=== PATIENT | female | born 1960 | race Caucasian/White ===

== ENCOUNTER → 2019-11-08 09:15 | Outpatient (CLI) | payer OTHER, SELFPAY ==
--- NOTE | ~2019-11-08 | DEXA_ITS ---
Bone Density Report Name: Sintia Esteban Age: 59 Sex: Female Ethnicity: White Date of : 1960 Indication: postmenopausal; screening for osteoporosis; hysterectomy; Referring Provider: CYNTHIA HATHAWAY Study: Bone densitometry was performed. Exam Date: November 08, 2019 Accession number: [id number] Bone Density: Region BMD T-score Z-score Classification AP Spine (L1-L4) 1.146 0.9 2.3 Normal Femoral Neck (Left) 0.766 -0.8 0.5 Normal Total Hip (Left) 1.061 1.0 1.9 Normal Femoral Neck (Right) 0.808 -0.4 0.9 Normal Total Hip (Right) 0.999 0.5 1.4 Normal Total Hip Mean 1.030 0.8 1.7 Normal World Health Organization criteria for BMD impression classify patients as: Normal (T-score at or above -1.0), Osteopenia (T-score between -1.0 and -2.5), or Osteoporosis (T-score at or below -2.5). 10-year Fracture Risk: FRAX not reported because: All T-scores for Spine Total, Hip Total, Femoral Neck at or above -1.0 Previous Exams: Region Exam Age BMD T-score BMD Change BMD Change Date g/cm2 vs Baseline vs Previous AP Spine(L1-L4) 11/08/2019 59 1.146 0.9 -0.036* 0.052 05/28/2015 54 1.094 0.4 -0.088 -0.088 11/01/2010 50 1.182 1.2 Total Hip(Left) 11/08/2019 59 1.061 1.0 -0.005 0.023 05/28/2015 54 1.037 0.8 -0.028 -0.028 11/01/2010 50 1.065 1.0 Total Hip(Right) 11/08/2019 59 0.999 0.5 -0.052* -0.007 05/28/2015 54 1.006 0.5 -0.045 -0.045 11/01/2010 50 1.051 0.9 *Denotes significance at 95% confidence level, LSC for AP Spine = 0.022 g/cm2, LSC for Total Hip = 0.027 g/cm2 Clinical Information Provided by Patient: Has used the following medications: Vitamin D Has the following medical conditions: Hysterectomy Patient maximum height was 64.75 Menopause Age: 49 Drinks caffeinated beverages Onset of menses at age 13 Number of children 2 Impression: The patient has normal bone mass. No significant bone loss was observed. Discussion: BONE DENSITY IS ABOVE THE MINIMUM DESIRABLE LEVEL AT ALL SKELETAL SITES TESTED. This patient?s bone mineral density is above the minimum desirable level (T-score -1.0 or better) at all sites measured. The patient should follow a healthful lifestyle (good nutrition with adequate calcium and vitamin D, and appropriate weight-bearing exercise). Follow-Up: Consider repeating
== END ==
PROVIDERS: Visit Provider Obstetrics & Gynecology Gynecology
DX: Z78.0 Asymptomatic menopausal state (principal)
CPT/HCPCS: 77080

== ENCOUNTER 2020-06-11 14:28 | Outpatient (CLI) | payer BC, SELFPAY ==
--- NOTE | 2020-06-11 15:07 | ECHO_ITS ---
Patient Info Name: Sintia Esteban Age: 59 years : 1960 Gender: Female Ht: 63 in Wt: 230 lbs BSA: 2.21 m2 HR: 79 bpm BP: 160 / 76 mmHg Technical Quality: Good Exam Date: 06/11/2020 3:20 PM Exam Location: [facility] Patient Status: Outpatient Admit Date: 06/11/2020 Staff Ordering Physician: Jaz Parra Alligator Trapper: Belem Goodson RDCS Attending Provider: Jaz Parra Referring Physician: Aida LANDAVERDE; Exam Type: CA echo doppler color flow Study Info Indications - cardiac murmur Complete two-dimensional, color flow and Doppler transthoracic echocardiogram is performed. Summary 1. Complete two-dimensional, color flow and Doppler transthoracic echocardiogram is performed. 2. Left ventricular chamber dimension is normal. 3. Left ventricular systolic function is normal, estimated at 65-70%. 4. There is mildly increased left ventricular wall thickness. 5. The left ventricular diastolic function is grade I diastolic dysfunction. 6. E/e' 11 is mildly elevated. 7. Left atrial chamber dimension is moderately enlarged. 8. There is trace mitral valve regurgitation. 9. No pulmonary hypertension, estimated pulmonary arterial systolic pressure is 17 mmHg. Left Ventricle E/e' 11 is mildly elevated. Left ventricular chamber dimension is normal. Left ventricular systolic function is normal, estimated at 65-70%. There is mildly increased left ventricular wall thickness. The left ventricular diastolic function is grade I diastolic dysfunction. Right Ventricle Right ventricular chamber dimension is normal. Right ventricular systolic function is normal. Left Atria Left atrial chamber dimension is moderately enlarged. Right Atria Right atrial chamber dimension is normal. Aortic Valve The aortic valve is trileaflet. There is no aortic valve stenosis. There is no aortic valve regurgitation. Pulmonic Valve There is no pulmonic regurgitation. Mitral Valve There is no mitral valve stenosis. There is trace mitral valve regurgitation. Tricuspid Valve There is no tricuspid valve regurgitation. No pulmonary hypertension, estimated pulmonary arterial systolic pressure is 17 mmHg. Pericardium/Pleural There is no pericardial effusion. Inferior Vena Cava Normal inferior vena cava with >50% collapse upon inspiration consistent with normal right atrial pressure, 5 mmHg. Aorta The aortic root size at the sinus of Valsalva is normal. Left Ventricular Outflow Tract Name Value Normal LVOT 2D LVOT Diameter 2.0 cm LVOT Doppler LVOT Peak Gradient 5 mmHg LVOT Mean Gradient 4 mmHg LVOT VTI 25 cm LVOT VTI/AV VTI Ratio 0.7 LVOT Stroke Volume 77 ml LVOT CO 17.3 l/min LVOT CI 7.8 l/min/m2 Pulmonic Valve Name Value Normal
--- NOTE | 2020-06-11 15:07 | ECG_ITS ---
Measurements Intervals [place] Rate: 71 P: 74 MI: 181 QRS: 9 QRSD: 97 T: 111 QT: 396 QTc: 432 Interpretive Statements SINUS RHYTHM BORDERLINE ST-T WAVE ABNORMALITY- HIGH LATERAL LEADS BASELINE ARTIFACT- II, III, AVF BORDERLINE ECG Electronically Signed On 06-11-2020 16:28:27 INORGANIC CHEMISTRY PROFESSOR by Naveen Amin D.O.
== END 2020-06-11 14:29 | disposition home or self-care (01) ==
PROVIDERS: PCP Family Medicine; Visit Provider Nurse Practitioner Family
DX: Q23.1 Congenital insufficiency of aortic valve (principal); R01.1 Cardiac murmur, unspecified
CPT/HCPCS: 93005; 93306

== ENCOUNTER → 2021-08-06 00:24 | Outpatient (CLI) | payer BC, SELFPAY ==
[2021-08-06 13:06] LABS: SARS-CoV-2 RNA PCR Negative
== END ==
PROVIDERS: PCP Family Medicine; Visit Provider Nurse Practitioner Family
DX: R05.9 Cough, unspecified (principal); Z20.822 Contact with and (suspected) exposure to COVID-19
CPT/HCPCS: C9803; U0003; U0005

== ENCOUNTER → 2021-10-31 14:15 | Outpatient (CLI) | payer BC, SELFPAY ==
--- NOTE | ~2021-10-31 | MM_ITS ---
EXAMINATION: MM screening rosa BI w kia HISTORY: Screening mammogram TECHNIQUE: Craniocaudal and mediolateral oblique 3-D tomosynthesis images were obtained and synthetic 2-D images were generated. CAD analysis was submitted and interpreted. COMPARISON: 07/29/2018 diagnostic right mammogram and limited right breast ultrasound 07/27/2018 bilateral screening mammogram 06/06/2017, 06/04/2016 bilateral screening mammogram examinations BREAST PARENCHYMAL COMPOSITION: The breasts are heterogeneously dense, which may obscure small masses . FINDINGS: A history of prior benign lumpectomy of left breast in March 2012 and benign needle biop sy of right breast in December 2011. No biopsy was reportedly deemed necessary at [facility] after 07/29/2018 diagnostic right m ammogram and limited right breast ultrasound examinations. There is no evidence of suspicious mass, calcification, or architectural distortion to suggest malign nader in either breast. There has been no suspicious interval change. IMPRESSION: 1. No mammographic evidence of malignancy. 2. Recommend routine screening mammography in one year. BI-RADS Category 2: Benign finding(s). Reviewed, dictated and finalized at location B.
== END ==
PROVIDERS: PCP Family Medicine; Visit Provider Obstetrics & Gynecology Gynecology
DX: Z12.31 Encounter for screening mammogram for malignant neoplasm of breast (principal)
CPT/HCPCS: 77063; 77067

== ENCOUNTER 2022-12-12 00:54 | Day surgery (SDC) | payer BC, SELFPAY ==
[2022-11-27 09:27] VITALS: BMI 31.5
--- NOTE | 2022-12-11 14:19 | PM.HPGS ---
History of Present Illness History of Present Illness Consent: Risks, benefits, and alternatives have been discussed and questions answered. Patient agrees to proceed with procedure. Chief complaint: family hx colon ca Narrative: Sintia Esteban is a 62 year old female Referred for colon cancer screening. she has a family history of colon cancer . Her last colonoscopy was 9 years ago. Review of Systems Review of Systems: All systems reviewed & are unremarkable except as noted in HPI and below PMFSH Past Medical History Medical History Abnormal glucose level Controlled diabetes mellitus type II without complication Edema HLD (hyperlipidemia) HTN (hypertension) Obesity Osteoarthritis Skin tag Vitamin D deficiency Surgical History Surgical History History of bladder suspension procedure History of hysterectomy with bilateral oophorectomy History of lumpectomy of left breast benign Family History Family History Father Hypertension Family history of congestive heart failure, Onset Age: 52 Family history of obesity Patient's father is Family history of coronary artery disease, Onset Age: 52 Sibling Family history of coronary artery disease Family history of obesity Hypertension Family history of diabetes mellitus in first degree relative, Onset Age: 39 Family history of mental disorder Family history of eczema Patient's sister is in good health Patient's brother is in good health Family history of alcoholism Mother Family history of malignant neoplasm of urinary bladder, Onset Age: 70 Depression Patient's mother is in good health Family history of hearing loss Grandparent Family history of hearing loss Other Carcinoma of colon Family history of attention deficit hyperactivity disorder (ADHD) Family history of emphysema Family history of lung cancer Family history of pancreatic cancer Social History Social History Smoking status: Never smoker Second hand tobacco smoke exposure: Yes Alcohol intake: current Alcohol use details: 1 drink monthly Substance use: never Substance use type: does not use Lack of Transportation: No Lack of Food: Sometimes True Current Housing: I Have Housing Concerned About Future Housing: No Difficulty Paying Gas/Electric Bills: No Difficulty Paying for Meds: No Currently Unemployed: No Education: High School Diploma/GED Difficulty w/ Childcare or Family Care: No Living arrangements: with family Occupation/Education: occupation Gender identity (if verbalized by the patient): Female Spiritual care concerns: No Meds Home Medications and Allergies Home Medications Medication Instructions Recorded Confirmed Type meloxicam 15 mg tablet 15 mg PO DAILY #90 tabs 08/07/21 12/12/22 Rx fenofibrate nanocrystallized 145 145 mg PO DAILY #90 tabs 09/23/21 12/12/22 Rx mg tablet atorvastatin 80 mg tablet 80 mg PO DAILY #90 tabs 10/11/21 12/12/22 Rx cholecalciferol (vitamin D3) 1,250 1,250 mcg PO WEEKLY #12 caps 02/28/22 12/12/22 Rx mcg (50,000 unit) capsule metformin 500 mg tablet,extended 1,000 mg PO BID 10/29/22 12/12/22 History release 24 hr tirzepatide 10 mg/0.5 mL 10 mg subcut WEEKLY 10/29/22 12/12/22 History subcutaneous pen injector (Shell) amlodipine 10 mg tablet 10 mg PO DAILY 11/27/22 12/12/22 History evening primrose oil 500 mg capsule 500 mg PO DAILY 11/27/22 12/12/22 History lisinopril 20 1 tablet PO DAILY 11/27/22 12/12/22 History mg-hydrochlorothiazide 25 mg tablet Allergies Allergy/AdvReac Type Severity Reaction Status Date / Time No Known Allergies Allergy Verified 12/12/22 12:24 Exam Resp: Auscultation: clear to auscultation bilaterally Cardio:
[2022-12-12 12:28] VITALS: BP 146/67; PULSE 77; RESP 18; TEMP 36.4; O2SAT 100
[2022-12-12] MEDS: LACTATED RINGERS 1,000 ML 150 ML IV CONT (12:44)
[2022-12-12 12:52] LABS: Glucose Point of Care 98 mg/dl (65-105)
--- NOTE | 2022-12-12 13:23 | WPDANESEPPF ---
Anes - Initial Pre Proc Eval Procedure: Operation Date: 12/12/22 13:30 Proposed Procedures p Colonoscopy - Manolo Alfaro MD Date/Time: 12/12/22 13:23 Surgeon: Manolo Alfaro MD Pre Op Diagnosis: family hx colon ca Patient Data Age: 62 Gender: F Height: 1.63 m Weight: 81.1 kg Last Vital Signs Temp 97.6 F 12/12/22 12:28 Pulse 77 12/12/22 12:28 Resp 18 12/12/22 12:28 BP 146/67 H 12/12/22 12:28 Pulse Ox 100 12/12/22 12:28 O2 Del Method Room Air 12/12/22 12:28 Allergies Allergy/AdvReac Type Severity Reaction Status Date / Time No Known Allergies Allergy Verified 12/12/22 12:24 Home Medications Medication Instructions Recorded Confirmed Type meloxicam 15 mg tablet 15 mg PO DAILY #90 tabs 08/07/21 12/12/22 Rx fenofibrate nanocrystallized 145 145 mg PO DAILY #90 tabs 09/23/21 12/12/22 Rx mg tablet atorvastatin 80 mg tablet 80 mg PO DAILY #90 tabs 10/11/21 12/12/22 Rx cholecalciferol (vitamin D3) 1,250 1,250 mcg PO WEEKLY #12 caps 02/28/22 12/12/22 Rx mcg (50,000 unit) capsule metformin 500 mg tablet,extended 1,000 mg PO BID 10/29/22 12/12/22 History release 24 hr tirzepatide 10 mg/0.5 mL 10 mg subcut WEEKLY 10/29/22 12/12/22 History subcutaneous pen injector (Mounjaro) amlodipine 10 mg tablet 10 mg PO DAILY 11/27/22 12/12/22 History evening primrose oil 500 mg capsule 500 mg PO DAILY 11/27/22 12/12/22 History lisinopril 20 1 tablet PO DAILY 11/27/22 12/12/22 History mg-hydrochlorothiazide 25 mg tablet Laboratory Tests 12/12/22 12:48 POC Capillary Glucose 98 mg/dl (65-105) Patient hx anesthesia problems: none Family hx anesthesia problems: none Results Review: All pre-operative results and documents have been reviewed as part of the pre-operative evaluation. [facility] Past Medical History Medical History Abnormal glucose level Controlled diabetes mellitus type II without complication Edema HLD (hyperlipidemia) HTN (hypertension) Obesity Osteoarthritis Skin tag Vitamin D deficiency Surgical History Surgical History History of bladder suspension procedure History of hysterectomy with bilateral oophorectomy History of lumpectomy of left breast benign Family History Family History Father Hypertension Family history of congestive heart failure, Onset Age: 52 Family history of obesity Patient's father is Family history of coronary artery disease, Onset Age: 52 Sibling Family history of coronary artery disease Family history of obesity Hypertension Family history of diabetes mellitus in first degree relative, Onset Age: 39 Family history of mental disorder Family history of eczema Patient's sister is in good health Patient's brother is in good health Family history of alcoholism Mother Family history of malignant neoplasm of urinary bladder, Onset Age: 70 Depression Patient's mother is in good health Family history of hearing loss Grandparent Family history of hearing loss Other Carcinoma of colon Family history of attention deficit hyperactivity disorder (ADHD) Family history of emphysema Family history of lung cancer Family history of pancreatic cancer Social History Social History Smoking status: Never smoker Second hand tobacco smoke exposure: Yes Alcohol intake: current Alcohol use details: 1 drink monthly Substance use: never Substance use type: does not use Lack of Transportation: No Lack of Food: Sometimes True Current Housing: I Have Housing Concerned About Future Housing: No Difficulty Paying Gas/Electric Bills: No Difficulty Paying for Meds: No Currently Unemployed: No Education: High School Diploma/GED Difficulty w/ Childcare or F
[2022-12-12 13:54] VITALS: BP 117/76; PULSE 88; RESP 23; O2SAT 99
[2022-12-12 14:04] VITALS: BP 130/59; PULSE 84; RESP 24; O2SAT 100
[2022-12-12 14:14] VITALS: BP 136/60; PULSE 73; RESP 19; O2SAT 100
== END 2022-12-12 14:19 | disposition home or self-care (01) ==
PROVIDERS: PCP Family Medicine; Visit Provider Internal Medicine Gastroenterology
PROC: 0DJD8ZZ Inspection of Lower Intestinal Tract, Via Natural or Artificial Opening Endoscopic (ICD-10-PCS; CPT 45378; principal; 2022-12-12 13:30)
DX: Z12.11 Encounter for screening for malignant neoplasm of colon (principal); K64.8 Other hemorrhoids; K57.30 Diverticulosis of large intestine without perforation or abscess without bleeding; Z80.0 Family history of malignant neoplasm of digestive organs; I10 Essential (primary) hypertension; E78.5 Hyperlipidemia, unspecified; E55.9 Vitamin D deficiency, unspecified; E11.9 Type 2 diabetes mellitus without complications; E66.9 Obesity, unspecified; Z68.30 Body mass index [BMI] 30.0-30.9, adult; Z79.84 Long term (current) use of oral hypoglycemic drugs; Z79.899 Other long term (current) drug therapy
CPT/HCPCS: 45378; 82948; J2704; J7120

== ENCOUNTER 2023-05-28 16:56 | Outpatient (CLI) | payer BC, SELFPAY ==
--- NOTE | ~2023-05-28 | XR_ITS ---
EXAMINATION: XR knee LT min 4V DATE: 05/28/2023 17:22 INDICATION: Left knee primary osteoarthritis. TECHNIQUE: 4 views of left knee including standing views were obtained. COMPARISON: Left knee radiographs 06/11/2022 FINDINGS: Bone alignment is normal. No fracture. There is moderate osteoarthritis of medial and morgan lofemoral compartments and mild osteoarthritis of lateral compartment. No knee joint effusion. IMPRESSION: 1. Moderate left knee osteoarthritis. Reviewed, dictated and finalized at location E. CARVING LATHE OPERATOR
== END 2023-05-28 16:57 | disposition home or self-care (01) ==
LOC: ANHIMG 17:02
PROVIDERS: PCP Nurse Practitioner Family; Visit Provider Orthopaedic Surgery
DX: M17.12 Unilateral primary osteoarthritis, left knee (principal)
CPT/HCPCS: 73564

== ENCOUNTER 2023-06-06 08:05 | Outpatient (CLI) | payer BC, SELFPAY ==
--- NOTE | 2023-06-06 08:31 | ECG_ITS ---
Measurements Intervals [place] Rate: 75 P: 60 CO: 194 QRS: -9 QRSD: 92 T: 89 QT: 381 QTc: 426 Interpretive Statements SINUS RHYTHM VENTRICULAR PREMATURE COMPLEX CONSIDER INFERIOR INFARCT, AGE INDETERMINATE NONSPECIFIC ST-T WAVE ABNORMALITY- HIGH LATERAL LEADS BASELINE WANDER- I, II ABNORMAL ECG COMPARED TO ECG 06/11/2020 15:50:08 NO SIGNIFICANT CHANGES Electronically Signed On 06-06-2023 9:10:24 VEHICLE SALES PROFESSIONAL by Naveen Aimn D.O.
[2023-06-06 08:49] LABS: Hematocrit 39.9 % (37.0-47.0); Hemoglobin 13.1 g/dL (12.0-15.0)
[2023-06-06 09:00] LABS: Hemoglobin A1C 5.9 % (<5.7)
[2023-06-06 09:08] LABS: Albumin Level 4.3 g/dL (3.5-5.1); Estimated Glomerular Filt Rate > 60; Glucose 102 mg/dL (65-110)
== END 2023-06-06 08:06 | disposition home or self-care (01) ==
LOC: ANHLAB 08:06
PROVIDERS: PCP Nurse Practitioner Family; Visit Provider Orthopaedic Surgery
DX: Z01.818 Encounter for other preprocedural examination (principal); R01.1 Cardiac murmur, unspecified; E11.9 Type 2 diabetes mellitus without complications; E78.2 Mixed hyperlipidemia; I10 Essential (primary) hypertension; R94.31 Abnormal electrocardiogram [ECG] [EKG]
CPT/HCPCS: 36415; 82040; 82565; 82947; 83036; 85014; 85018; 93005

== ENCOUNTER 2023-08-05 11:43 | Outpatient (CLI) | payer BC, SELFPAY ==
[2023-08-05 13:04] LABS: Basophils Percent Auto 0.4 % (0.2-1.2); Eosinophils Absolute Auto 0.1 K/mm3 (0-0.3); Eosinophils Percent Auto 0.9 % (0-4.4); Hematocrit 38.7 % (37.0-47.0); Hemoglobin 12.5 g/dL (12.0-15.0); Immature Granulocyte Absolute 0.03 K/mm3 (0.00-0.031); Immature Granulocyte Percent A 0.4 % (0-0.5); Lymphocytes Absolute Auto 2.18 K/mm3 (0.9-3.2); Lymphocytes Percent Auto 27.1 % (18.3-44.2); Mean Corpuscular HGB Conc 32.3 g/dl (32-36); Mean Corpuscular Hemoglobin 29.8 pg (26-34); Mean Corpuscular Volume 92.1 fl (80-100); Mean Platelet Volume 9.6 fl (7.4-10.4); Monocytes Absolute Auto 0.5 K/mm3 (0.1-0.6); Monocytes Percent Auto 5.6 % (2.6-8.5); Neutrophils Absolute Auto 5.3 K/mm3 (1.3-6.7); Neutrophils Percent Auto 65.6 % (45.5-73.1); Platelet Count Result 391 k/mm3 (150-375); White Blood Count 8.1 K/mm3 (4.5-10.0)
[2023-08-05 13:11] LABS: Albumin Level 4.7 g/dL (3.5-5.1)
[2023-08-05 13:14] LABS: Anion Gap 9 mmol/L (4-12); Blood Urea Nitrogen 27 mg/dL (7-17); Calcium 10.1 mg/dL (8.4-10.2); Carbon Dioxide 25 mmol/L (22-30); Chloride 105 mmol/L (98-107); Estimated Glomerular Filt Rate > 60; Glucose 102 mg/dL (65-110); Potassium 3.7 mmol/L (3.4-5.0); Sodium 139 mmol/L (137-145)
[2023-08-05 13:17] LABS: Urine Cotinine NEGATIVE
[2023-08-05 14:29] LABS: MRSA (PCR) NOT DETECTED (NOT DETECTE)
== END 2023-08-05 11:44 | disposition home or self-care (01) ==
LOC: ANHSURGERY 11:46
PROVIDERS: Anesthesiology; PCP Nurse Practitioner Family; Visit Provider Orthopaedic Surgery
DX: Z01.818 Encounter for other preprocedural examination (principal); I10 Essential (primary) hypertension; M17.12 Unilateral primary osteoarthritis, left knee
CPT/HCPCS: 36415; 80048; 80307; 82040; 85025; 87641

== ENCOUNTER 2023-09-01 00:31 | Day surgery (SDC) | payer BC, SELFPAY ==
[2023-08-05 11:51] VITALS: BMI 31.2
--- NOTE | 2023-08-05 12:14 | PC.NURSE ---
Report to the Outpatient Waiting Room, entrance under the green pavilion located off [facility], at time _1030 on date __09/01/23 . Planned Procedure Time: __1230 . Time changes happen often and if your time is changed the preop area will call you the afternoon before. - You and your visitor will be asked to self-screen and do not enter if you have any COVID symptoms. - A mask is optional within the hospital at this time. Patients may have clear liquids (water, carbonated beverages, clear teas, apple juice) until 3 hours prior to surgery ( 9:30 AM)with a maximum of 20 ounces. - No food from midnight until time of surgery - Infants may have breast milk until 4 hours before surgery, formula 6 hours prior to surgery. - Children will be allowed to drink immediately following surgery. If applicable, please bring a bottle or sippy cup to assist with drinking. Juice, water, soda, and popsicles are readily available. For infants on formula, please bring formula the day of surgery. Pacifiers are allowed. Take the following medications with a SIP of water the morning of surgery: ___AMLODIPINE DO NOT STOP ANY OF YOUR OTHER PRESCRIPTION MEDICATIONS PRIOR TO SURGERY ?EXCEPT THE FOLLOWING Medications to discontinue per physician _PT STATES HOLD ALL VITAMINS AND SUPPLEMENTS AND MELOXICAM 7 DAYS PRE OP PER DR GARCIA.LAST DOSE 08/24/23 ___MAY TAKE TYLENOL IF NEEDED FOR PAIN Please no make-up, nail moroccan, hairspray, perfume, deodorant, or body powder the day of surgery. No jewelry (including any body piercings) or valuables the day of surgery, leave them at home. Please take a shower or bath the night before, or the morning of, surgery with an antibacterial soap. Wear comfortable, loose fitting clothing. Children are encouraged to wear pajamas. - Jewelry must be removed prior to entering the operating room. Rings and piercings that are not removed may be cut off. - The hospital will not accept responsibility for valuables. - Please leave all valuables, including medications, at home the day of surgery. If you are going home after surgery, a licensed driver guard must drive you home. - NO public transportation without another adult if you receive anesthesia. - We recommend that an adult stay with you for 24 hours following discharge. - We also recommend that you do not drive, make important decision, drink alcoholic beverages, or take any drugs that were not prescribed by your health care provider for at least 24 hours after your discharge time. Follow any additional instructions given to you from your surgeon. If you or anyone in your household have experienced Covid symptoms in the past week, please notify your surgeon or the nurse liaison at the phone number below for possible testing. VERBAL AND WRITTEN instructions given to _PATIENT and asked if any additional questions and then verbalized understanding. Patient advised to call surgeon office or pre surgery nurse liaison [phone] if any additional questions.
[2023-08-05 12:44] VITALS: BP 133/58; PULSE 70; RESP 18; TEMP 36.9; O2SAT 99
[2023-09-01] VITALS (12 sets, daily range): BP systolic 108–130; BP diastolic 50–62; PULSE 75–89; RESP 12–18; TEMP 35.9–36.8; O2SAT 95–100
--- NOTE | ~2023-09-01 | XR_ITS ---
EXAMINATION: [id number]_[id number]_CR DATE: 09/01/2023 12:38 CDT INDICATION: Left knee arthroplasty TECHNIQUE: 2 views left knee FINDINGS: There is a left total knee arthroplasty in expected position. Subcutaneous gas with fluid and air in the joint are consistent with recent surgery. No evidence of periprosthetic fracture. IMPRESSION: 1. Recent left total knee arthroplasty. Reviewed, dictated and finalized at location B.
--- NOTE | 2023-09-01 07:21 | WPDHPUPDATE1 ---
History and Physical Update Update Date/Time: 09/01/23 07:21 History and Physical has been reviewed, including an updated exam of the patient. There are NO changes in the patient's condition. Risks, benefits, and alternatives have been discussed and questions answered. Patient agrees to proceed with procedure.
[2023-09-01 08:31] LABS: Glucose Point of Care 104 mg/dl (65-105)
[2023-09-01] MEDS: ACETAMINOPHEN 500 MG TABLET 1000 MG PO (08:40)
[2023-09-01] MEDS: TRANEXAMIC ACID 1,000MG/ISO100 1,000 MG/100 ML BAG 200 MG IVPB (08:40)
--- NOTE | 2023-09-01 08:51 | WPDANESEPPF ---
Anes - Initial Pre Proc Eval Procedure: Operation Date: 09/01/23 10:00 Proposed Procedures p Left Custom Total Knee Arthroplasty - Alonso Chapman MD Date/Time: 09/01/23 08:51 Surgeon: Alonso Chapman MD Pre Op Diagnosis: primary oa left knee Patient Data Age: 62 Gender: F Height: 1.63 m Weight: 81.4 kg Last Vital Signs Temp 36.9 C 08/05/23 12:44 Pulse 70 08/05/23 12:44 Resp 18 08/05/23 12:44 BP 133/58 L 08/05/23 12:44 Pulse Ox 99 08/05/23 12:44 O2 Del Method Room Air 08/05/23 12:44 Allergies Allergy/AdvReac Type Severity Reaction Status Date / Time No Known Allergies Allergy Verified 09/01/23 09:03 Home Medications Medication Instructions Recorded Confirmed Type meloxicam 15 mg tablet 15 mg PO DAILY #90 tabs 08/07/21 08/05/23 Rx amlodipine 10 mg tablet 10 mg PO DAILY 11/27/22 09/01/23 History evening primrose oil 500 mg capsule 500 mg PO DAILY 11/27/22 08/05/23 History lisinopril 20 1 tablet PO DAILY 11/27/22 08/05/23 History mg-hydrochlorothiazide 25 mg tablet tirzepatide 10 mg/0.5 mL 12.5 mg subcut WEEKLY 04/08/23 08/05/23 History subcutaneous pen injector (Mounjaro) atorvastatin 80 mg tablet 80 mg PO HS 08/05/23 08/05/23 History cholecalciferol (vitamin D3) 125 125 mcg PO DAILY 08/05/23 08/05/23 History mcg (5,000 unit) capsule fenofibrate nanocrystallized 145 145 mg PO HS 08/05/23 08/05/23 History mg tablet magnesium 200 mg tablet 200 mg PO DAILY 08/05/23 08/05/23 History multivitamin 1 tablet PO DAILY 08/05/23 08/05/23 History aspirin 81 mg tablet,delayed 81 mg PO BID 14 days #28 tabs 09/01/23 Rx release oxycodone-acetaminophen 5 mg-325 1 - 2 tablet PO Q4-6H PRN pain #30 09/01/23 Rx mg tablet tabs prednisone 5 mg tablet 5 mg PO DAILY 3 weeks #21 tabs 09/01/23 Rx Laboratory Tests 09/01/23 09/01/23 08:25 08:29 POC Capillary Glucose 104 mg/dl (65-105) Blood Type Pending Antibody Screen Pending Patient hx anesthesia problems: none Family hx anesthesia problems: none Results Review: All pre-operative results and documents have been reviewed as part of the pre-operative evaluation. [facility] Past Medical History Medical History (Updated 09/01/23 @ 08:52 by Sree Rodriguez DO) Abnormal glucose level Controlled diabetes mellitus type II without complication Edema HLD (hyperlipidemia) HTN (hypertension) Obesity RUDDY (obstructive sleep apnea) Osteoarthritis Skin tag Vitamin D deficiency Surgical History Surgical History (Updated 09/01/23 @ 07:27 by AISLINN Ulrich) History of bladder suspension procedure History of hysterectomy with bilateral oophorectomy History of lumpectomy of left breast benign Family History Family History Father Hypertension Family history of congestive heart failure, Onset Age: 52 Family history of obesity Patient's father is Family history of coronary artery disease, Onset Age: 52 Sibling Family history of coronary artery disease Family history of obesity Hypertension Family history of diabetes mellitus in first degree relative, Onset Age: 39 Family history of mental disorder Family history of eczema Patient's sister is in good health Patient's brother is in good health Family history of alcoholism Mother Family history of malignant neoplasm of urinary bladder, Onset Age: 70 Depression Patient's mother is in good health Family history of hearing loss Grandparent Family history of hearing loss Other Carcinoma of colon Family history of attention deficit hyperactivity disorder (ADHD) Family history of emphysema Family history of lung cancer Family history of pancreatic cancer Social History Social History Smoking status: Never smoker Second hand tobacco smoke exposure: Yes Addition
[2023-09-01] MEDS: ceFAZolin 2 GM/D5W 50 ML 2 GM/50 ML BAG IVPB ×2 (09:44→17:40)
--- NOTE | 2023-09-01 09:45 | WPDANESPNB ---
Anes - Peripheral Nerve Block Date/Time: 09/01/23 09:45 I have discussed with the patient/family/POA the placement of a peripheral nerve block for post-operative pain management, including associated risks, benefits, complications, and side effects. Alternative methods of post-operative analgesia were detailed. Questions were solicited and answers provided to the satisfaction of the patient/family/POA. Time-Out: A pre-procedural Time-Out was completed immediately before starting the procedure and confirmed: Patient Identification, Site, Procedure, Patient Position and the Availability of Requisite Equipment. Clinical Indications: Acute post-operative pain management requested by the operative surgeon. Nerve Block Insertion Note Anes-nerve block: adductor canal left Patient position: supine Skin prep: chlorhexidine Needle: 22 gauge, stimulating, insulated echogenic needle. Needle length: 80 mm Technique: ultrasound Injectate: bupivacaine 0.5% with epi 5 mcg/ml (30cc - no epi) Observations: tolerated well Complications: none Procedure start time:: 933 Procedure end time:: 938
[2023-09-01] MEDS: LACTATED RINGERS 1,000 ML 30 ML IV CONT ×2 (10:00→12:19)
[2023-09-01] MEDS: SODIUM CHLORIDE 0.9% IV 37.7 ML, MORPHINE SULFATE INJ (*CRX) 2 MG, ROPivacaine HCL 1% 2... INFILTRATE (10:15)
[2023-09-01] MEDS: TRANEXAMIC ACID 1,000 MG/10 ML AMPUL 1000 MG IV PUSH (11:36)
[2023-09-01 12:26] LABS: Glucose Point of Care 104 mg/dl (65-105)
--- NOTE | 2023-09-01 13:09 | P.OP_ITS ---
Procedure Note - Detailed Date of Procedure 09/01/23 Pre-op Diagnosis primary oa left knee Post-op Diagnosis Same Procedure Performed Total knee arthroplasty, left Surgeon Alonso Chapman MD [employer]cier[employer] Maryann Roque PA-C Anesthesia General and Regional (Subsartorial block.) Findings Good bone quality. Custom knee components and jigs fit optimally. No significant ligament releases. Subvastus approach. Description of Procedure Preoperative antibiotics were given. The limb was prepped and draped in the usual sterile fashion with a well-padded tourniquet high on the thigh. The limb was exsanguinated and the tourniquet inflated to 300 mmHg. A longitudinal incision was created just medial to the patella. A subvastus approach to the knee was performed. Arthrotomy was taken down through the joint capsule. No significant releases were initially taken. The femur was exposed and the F1 jig was applied. The coring tool was used to remove the cartilage for the F2 jig to sit flush with the bone. The jig was pinned and the distal cut carefully taken. Caliper measurements confirmed appropriate bony resections according to the preoperative templated plan. The F4 cutting jig for the femur was applied, at the standard rotation. The AP and anterior chamfer cuts were taken. The F5 jig was applied and the posterior chamfer cuts were taken. The tibia was prepared using the T1 jig, after removing cartilage for the jig contact points. Proper alignment was checked with the alignment makayla. The tibia was cut using the T1u guide. Gap balancing was performed. Gap measurements were taken and the knee was trialed. Excellent alignment and soft tissue balancing was confirmed. The posterior cruciate ligament was recessed along the proximal tibia. The patella was cut for resurfacing. Three lug holes were drilled. Me niscal remnants were removed. The trial components were assembled. Excellent range of motion and proper soft tissue balancing were confirmed throughout the full range of motion. Patellar tracking was excellent. The knee was copiously irrigated periodically throughout the procedure. The real implants were cemented into position. Excess cement was carefully removed. The wound was closed in layers with interrupted #1 Vicryl suture, 2-0 strata fix suture, 0 strata fix suture, 2-0 strata fix suture. Steri-Strips placed on the skin with the knee flexed. Sterile bulky dressing applied. The patient was brought to the recovery room in stable condition. There were no complications. Physician dental assistant medical assistant, Maryann Roque PA-C, required for surgery; including patient positioning, draping, tissue retraction, maintaining instrument position, cement removal, wound closure, and dressing placement. Implants Conformis Custom total knee arthroplasty. Cemented. Cruciate retaining. 6A insert. 29 mm round patella. Estimated Blood Loss 20 Drains No Complications No immediate complications Condition Stable Disposition PACU [facility] Billing Surgery - Charge Forward: Surgery Billing
--- NOTE | 2023-09-01 13:23 | ADMGEN ---
This patient, Sintia Esteban, was admitted to -. Patient/family oriented to hospital policies and general routines including ID bracelet, bed and alarms, visiting hours, pain management, procedures, bathroom and other care routines, personal items, smoking policy, room service/diet, and visiting hours. Information on how to activate the Rapid Response Team has been discussed. Patient/Family are encouraged to report perceived risks to care and to ask questions if they do not understand what they are told or what they should do.
[2023-09-01] MEDS: oxyCODONE/ACETAMINOPHEN (*CRX) 10-325 MG TABLET 1 TAB PO (13:40)
[2023-09-01] MEDS: IBUPROFEN IV 800 MG/200 ML 800 MG/200 ML BAG 400 MG IVPB (13:41)
[2023-09-01] MEDS: lisinopriL 20 MG TABLET PO (13:54)
[2023-09-01] MEDS: hydroCHLOROthiazide 25 MG TABLET PO (13:54)
[2023-09-01] MEDS: ASPIRIN 81 MG ENTERIC TABLET PO (16:43)
[2023-09-01] MEDS: SENNA/DOCUSATE SODIUM TABLET 2 TAB PO (16:43)
[2023-09-01] MEDS: predniSONE 5 MG TABLET PO (16:43)
[2023-09-01] MEDS: ACETAMINOPHEN 325 MG TABLET 650 MG PO (17:40)
[2023-09-01] MEDS: FAMOTIDINE 20 MG TABLET PO (20:58)
[2023-09-01] MEDS: ATORVASTATIN 40 MG TABLET 80 MG PO (20:58)
[2023-09-01] MEDS: FENOFIBRATE NANOCRYSTALLIZED 145 MG TABLET PO (20:58)
[2023-09-01] MEDS: oxyCODONE/ACETAMINOPHEN (*CRX) 5-325 MG TABLET 1 TABLET PO (22:41)
[2023-09-01] MEDS: WATER FOR IRRIGATION, STERILE 1,000 ML BOTTLE 1000 ML (23:26)
[2023-09-02] MEDS: ceFAZolin 2 GM/D5W 50 ML 2 GM/50 ML BAG IVPB ×2 (01:39→09:44)
[2023-09-02 03:07] VITALS: BP 118/47; PULSE 84; RESP 16; TEMP 36.5; O2SAT 99
[2023-09-02 05:33] VITALS: BP 114/50; PULSE 86; RESP 18; TEMP 36.4; O2SAT 94
[2023-09-02] MEDS: ACETAMINOPHEN 325 MG TABLET 650 MG PO (05:53)
[2023-09-02 06:21] LABS: Basophils Percent Auto 0.2 % (0.2-1.2); Eosinophils Percent Auto 0.2 % (0-4.4); Hematocrit 35.1 % (37.0-47.0); Hemoglobin 11.4 g/dL (12.0-15.0); Immature Granulocyte Absolute 0.03 K/mm3 (0.00-0.031); Immature Granulocyte Percent A 0.3 % (0-0.5); Lymphocytes Absolute Auto 1.32 K/mm3 (0.9-3.2); Lymphocytes Percent Auto 14.3 % (18.3-44.2); Mean Corpuscular HGB Conc 32.5 g/dl (32-36); Mean Corpuscular Hemoglobin 29.4 pg (26-34); Mean Corpuscular Volume 90.5 fl (80-100); Mean Platelet Volume 9.5 fl (7.4-10.4); Monocytes Absolute Auto 0.7 K/mm3 (0.1-0.6); Monocytes Percent Auto 7.8 % (2.6-8.5); Neutrophils Absolute Auto 7.1 K/mm3 (1.3-6.7); Neutrophils Percent Auto 77.2 % (45.5-73.1); Platelet Count Result 324 k/mm3 (150-375); Red Blood Count 3.88 M/mm3 (4.2-5.4); White Blood Count 9.2 K/mm3 (4.5-10.0)
[2023-09-02 06:28] LABS: Anion Gap 5 mmol/L (4-12); Blood Urea Nitrogen 15 mg/dL (7-17); Calcium 9.2 mg/dL (8.4-10.2); Carbon Dioxide 25 mmol/L (22-30); Chloride 106 mmol/L (98-107); Estimated CRCL calculation 84 ml/min; Estimated Glomerular Filt Rate > 60; Glucose 116 mg/dL (65-110); Potassium 3.8 mmol/L (3.4-5.0); Sodium 136 mmol/L (137-145)
--- NOTE | 2023-09-02 07:35 | PM.DS ---
DS: Admitting Diagnosis Discharge Date 09/02/23 Admitting Diagnosis Knee arthritis. DS: Discharge Diagnosis Discharge Diagnosis (1) Status post total left knee replacement: Code(s): Z96.652 - Presence of left artificial knee joint Status: Acute Plan Postop day 1: Left total knee arthroplasty. Patient tolerated procedure well. No complications. Pain manageable with pain medication. No numbness or tingling. We had a lengthy discussion regarding postoperative wound care, limitations, expectations, and exercises. Patient shows good understanding. She has had initial physical therapy and is tolerating it well. DVT prophylaxis: 81 mg baby aspirin b.i.d. for 14 days. Pain medication: Percocet. Patient has followup appointment with Dr. Chapman in 3 weeks. DS: Summary Hospital Course Reason for hospitalization: Total knee arthroplasty Hospital Course: Patient tolerated procedure well. Has had initial PT/OT. Status at Discharge Functional status at discharge: uses cane/walker Overall status at discharge: patient is progressing back to baseline Time Spent with Patient Time attestation: Total time spent providing and/or coordinating discharge services: Exam Narrative: 62-year-old overweight female. Resting comfortably in chair. Alert and oriented x3. No acute distress. Wearing compression socks bilaterally. Dressing intact without drainage. Mild swelling. No ecchymosis. No erythema. No hematoma. Range of motion limited due to pain. Calf nontender. Quad fires. Neurologic status intact. No varicosities. Distal pulses palpable. DS: Data Data Completed and Pending Labs on day of discharge: Labs from last 24 hours 09/02/23 09/01/23 09/01/23 05:56 12:23 08:29 WBC 9.2 RBC 3.88 L Hgb 11.4 L Hct 35.1 L MCV 90.5 MCH 29.4 MCHC 32.5 RDW 13.0 Plt Count 324 MPV 9.5 Immature Gran % (Auto) 0.3 Neut % (Auto) 77.2 H Lymph % (Auto) 14.3 L Harvey % (Auto) 7.8 Eos % (Auto) 0.2 Baso % (Auto) 0.2 Lymph # (Auto) 1.32 Harvey # (Auto) 0.7 H Eos # (Auto) 0.0 Baso # (Auto) 0.0 Abs Immat Gran (auto) 0.03 Absolute Neuts (auto) 7.1 H Absolute Nucleated RBC 0.000 Nucleated RBC % 0.0 Sodium 136 L Potassium 3.8 Chloride 106 Carbon Dioxide 25 Anion Gap 5 BUN 15 D Creatinine 0.60 L Estim Creat Clear Calc 84 Estimated GFR > 60 Glucose 116 H POC Capillary Glucose 104 104 Calcium 9.2 Blood Type Antibody Screen 09/01/23 08:25 WBC RBC Hgb Hct MCV MCH MCHC RDW Plt Count MPV Immature Gran % (Auto) Neut % (Auto) Lymph % (Auto) Harvey % (Auto) Eos % (Auto) Baso % (Auto) Lymph # (Auto) Harvey # (Auto) Eos # (Auto) Baso # (Auto) Abs Immat Gran (auto) Absolute Neuts (auto) Absolute Nucleated RBC Nucleated RBC % Sodium Potassium Chloride Carbon Dioxide Anion Gap BUN Creatinine Estim Creat Clear Calc Estimated GFR Glucose POC Capillary Glucose Calcium Blood Type A Negative Antibody Screen Negative Discharge Plan Discharge Patient Disposition: Home, Self-Care Discharge Instructions: See green instruction sheets Stand Alone Forms: General Discharge Instructions Follow-up/Referrals: Maryann Roque PA [Physician Rn Embedded] - Discharge Medications: New prednisone 5 mg tablet 5 mg PO DAILY 21 Days Qty: 21 0RF aspirin 81 mg tablet,delayed release (DR/EC) 81 mg PO BID 14 Days Qty: 28 0RF oxycodone-acetaminophen 5-325 mg tablet 1 - 2 tablet PO Q4-6H MDD 6 PRN (Reason: pain) Qty: 30 0RF Continued cholecalciferol (vitamin D3) 125 mcg (5,000 unit) capsule 125 mcg PO DAILY Mounjaro 10 mg/0.5 mL pen injector 12.5 mg subcut WEEKLY Patient Comments: TAKES ON MONDAYS evening primrose oil 500 mg Capsule 500 mg PO DAILY Rx Instructions: give with meal/snack
[2023-09-02] MEDS: hydroCHLOROthiazide 25 MG TABLET PO (07:57)
[2023-09-02] MEDS: SENNA/DOCUSATE SODIUM TABLET 2 TAB PO (07:57)
[2023-09-02] MEDS: polyethylene glycoL 3350 17 GM POWD.PACK PO (07:57)
[2023-09-02] MEDS: ASPIRIN 81 MG ENTERIC TABLET PO (07:57)
[2023-09-02] MEDS: lisinopriL 20 MG TABLET PO (07:57)
[2023-09-02] MEDS: FAMOTIDINE 20 MG TABLET PO (07:58)
[2023-09-02] MEDS: CYCLOBENZAPRINE HCL 10 MG TABLET PO (07:58)
[2023-09-02] MEDS: oxyCODONE/ACETAMINOPHEN (*CRX) 10-325 MG TABLET 1 TAB PO (07:58)
[2023-09-02] MEDS: amLODIPine BESYLATE 5 MG TABLET 10 MG PO (07:58)
[2023-09-02] MEDS: MELOXICAM 7.5 MG TABLET 15 MG PO (07:58)
[2023-09-02 08:00] VITALS: BP 116/67; PULSE 73; RESP 14; TEMP 37; O2SAT 98
== END 2023-09-02 11:00 | disposition home or self-care (01) ==
LOC: ANHSURGERY 07:46 → ANH3MEDSUR 13:24
PROVIDERS: Physician Assistant Surgical; PCP Nurse Practitioner Family; Visit Provider Orthopaedic Surgery
PROC: (CPT 27447; principal; 2023-09-01 10:00)
DX: M17.12 Unilateral primary osteoarthritis, left knee (principal); G89.18 Other acute postprocedural pain; I10 Essential (primary) hypertension; E11.9 Type 2 diabetes mellitus without complications; E78.5 Hyperlipidemia, unspecified; G47.33 Obstructive sleep apnea (adult) (pediatric); E55.9 Vitamin D deficiency, unspecified; E66.9 Obesity, unspecified; Z68.30 Body mass index [BMI] 30.0-30.9, adult
CPT/HCPCS: 27447; 64447; 36415; 73560; 80048; 82948; 85025; 86850; 86900; 86901; 97110; 97116; 97161; 97165; 97530; 97535; A9270; C1713; C1776; J0171; J0330; J0690; J1170; J1741; J1885; J2250; J2270; J2405; J2704; J2765; J2795; J3010; J7120; J7512

== ENCOUNTER 2023-10-21 08:20 | Outpatient (CLI) | payer BC, SELFPAY ==
--- NOTE | ~2023-10-21 | XR_ITS ---
Left Knee Technique: AP, lateral, and sunrise views were obtained. Clinical History: Arthroplasty follow-up COMPARISON: 05/28/2023 Findings: No fracture or dislocation is seen. Status post interval left knee arthroplasty. No hardwar e complication seen.. Soft tissues are unremarkable. No joint effusion is seen. Impression: No acute abnormality. Left knee arthroplasty in place. Reviewed, dictated and finalized at location M. Impression: No acute abnormality. Left knee arthroplasty in place.
== END 2023-10-21 08:21 | disposition home or self-care (01) ==
LOC: ANHIMG 08:22
PROVIDERS: PCP Nurse Practitioner Family; Visit Provider Orthopaedic Surgery
DX: Z47.1 Aftercare following joint replacement surgery (principal)
CPT/HCPCS: 73562

== ENCOUNTER 2023-10-30 07:37 | Outpatient (CLI) | payer BC, SELFPAY ==
[2023-10-30 08:18] LABS: Albumin Level 4.7 g/dL (3.5-5.1); Estimated Glomerular Filt Rate > 60; Glucose 102 mg/dL (65-110)
[2023-10-30 08:21] LABS: Hematocrit 41.2 % (37.0-47.0); Hemoglobin 13.4 g/dL (12.0-15.0)
[2023-10-30 09:12] LABS: Hemoglobin A1C 5.5 % (<5.7)
== END 2023-10-30 07:38 | disposition home or self-care (01) ==
LOC: ANHLAB 07:38
PROVIDERS: PCP Nurse Practitioner Family; Visit Provider Orthopaedic Surgery
DX: M17.11 Unilateral primary osteoarthritis, right knee (principal); E55.9 Vitamin D deficiency, unspecified; E11.9 Type 2 diabetes mellitus without complications
CPT/HCPCS: 36415; 82040; 82565; 82947; 83036; 85014; 85018

== ENCOUNTER 2023-12-21 12:14 | Outpatient (CLI) | payer BC, SELFPAY ==
[2023-12-21 14:09] LABS: Basophils Percent Auto 0.2 % (0.2-1.2); Eosinophils Absolute Auto 0.1 K/mm3 (0-0.3); Eosinophils Percent Auto 1.4 % (0-4.4); Hematocrit 37.4 % (37.0-47.0); Hemoglobin 12.5 g/dL (12.0-15.0); Immature Granulocyte Absolute 0.01 K/mm3 (0.00-0.031); Immature Granulocyte Percent A 0.2 % (0-0.5); Lymphocytes Absolute Auto 0.97 K/mm3 (0.9-3.2); Mean Corpuscular HGB Conc 33.4 g/dl (32-36); Mean Corpuscular Hemoglobin 30.2 pg (26-34); Mean Corpuscular Volume 90.3 fl (80-100); Mean Platelet Volume 9.7 fl (7.4-10.4); Monocytes Absolute Auto 0.4 K/mm3 (0.1-0.6); Monocytes Percent Auto 7.8 % (2.6-8.5); Neutrophils Absolute Auto 3.4 K/mm3 (1.3-6.7); Neutrophils Percent Auto 70.4 % (45.5-73.1); Platelet Count Result 318 k/mm3 (150-375); Red Blood Count 4.14 M/mm3 (4.2-5.4); White Blood Count 4.9 K/mm3 (4.5-10.0)
[2023-12-21 14:18] LABS: Urine Cotinine NEGATIVE
[2023-12-21 14:19] LABS: Albumin Level 4.4 g/dL (3.5-5.1)
[2023-12-21 14:23] LABS: Anion Gap 10 mmol/L (4-12); Blood Urea Nitrogen 22 mg/dL (7-17); Calcium 9.6 mg/dL (8.4-10.2); Carbon Dioxide 28 mmol/L (22-30); Chloride 102 mmol/L (98-107); Estimated Glomerular Filt Rate > 60; Glucose 96 mg/dL (65-110); Sodium 140 mmol/L (137-145)
[2023-12-21 15:29] LABS: MRSA (PCR) NOT DETECTED (NOT DETECTE)
== END 2023-12-21 12:15 | disposition home or self-care (01) ==
PROVIDERS: Anesthesiology; PCP Nurse Practitioner Family; Visit Provider Orthopaedic Surgery
DX: Z01.812 Encounter for preprocedural laboratory examination (principal); M17.11 Unilateral primary osteoarthritis, right knee; E11.9 Type 2 diabetes mellitus without complications
CPT/HCPCS: 36415; 80048; 80307; 82040; 85025; 87641

== ENCOUNTER 2023-12-30 10:52 | Outpatient (CLI) | payer BC, SELFPAY ==
--- NOTE | ~2023-12-30 | MM_ITS ---
EXAMINATION: MM screening rosa BI w kia HISTORY: Screening TECHNIQUE: Craniocaudal and mediolateral oblique 3-D tomosynthesis images were obtained and synthetic 2-D images were generated. CAD analysis was submitted and interpreted. COMPARISON: Comparison to multiple prior studies sequentially, with oldest reviewed study dated 05/28. BREAST PARENCHYMAL COMPOSITION: Dense: The breasts are heterogeneously dense, which may obscure small masses FINDINGS: There is no evidence of suspicious mass, calcification, or architectural distortion to sugg est malignancy in either breast. There has been no suspicious interval change. IMPRESSION: 1. No mammographic evidence of malignancy. 2. Recommend routine screening mammography in one year. BI-RADS Category 1: Negative Reviewed, dictated and finalized at location B.
== END 2023-12-30 10:53 | disposition home or self-care (01) ==
LOC: MICIMG 10:53
PROVIDERS: PCP Nurse Practitioner; Visit Provider Nurse Practitioner
DX: Z12.31 Encounter for screening mammogram for malignant neoplasm of breast (principal); Z78.0 Asymptomatic menopausal state
CPT/HCPCS: 77063; 77067

== ENCOUNTER 2024-01-12 00:10 | Day surgery (SDC) | payer BC, SELFPAY ==
[2023-12-21 08:08] VITALS: BP 115/54; PULSE 62; RESP 16; TEMP 37; O2SAT 98; BMI 30.2
--- NOTE | 2023-12-21 12:20 | PC.NURSE ---
Report to the Outpatient Waiting Room, entrance under the green pavilion located off [facility], at time _8:30AM_ on date _01/12/24_. Planned Procedure Time: _10:30AM_.? Time changes happen often and if your time is changed the preop area will call you the afternoon before. - You and your visitor will be asked to self-screen and do not enter if you have any COVID symptoms. Please call surgeon if you need to reschedule. - A mask is optional within the hospital at this time. Patients may have clear liquids (water, carbonated beverages, clear teas, apple juice) until 3 hours prior to surgery with a maximum of 20 ounces. - No food from midnight until time of surgery and no smoking. Take only the following medications with a SIP of water on the morning of surgery: NONE DO NOT STOP ANY OF YOUR OTHER PRESCRIPTION MEDICATIONS PRIOR TO SURGERY EXCEPT THE FOLLOWING Medications to discontinue per physician HOLD MELOXICAM (NSAIDS) & ALL VITAMINS/SUPPLEMENTS 7 DAYS PRE-OP PER DR GARCIA- LAST DOSE 01/04/24. Please no make-up, nail ukrainian, hairspray, perfume, deodorant, or body powder the day of surgery.? No jewelry (including any body piercings) or valuables the day of surgery, leave them at home.? Please take a shower or bath the night before, or the morning of, surgery with an antibacterial soap.? Wear comfortable, loose fitting clothing.? - Jewelry must be removed prior to entering the operating room.? Rings and piercings that are not removed may be cut off. - The hospital will not accept responsibility for valuables.? - Please leave all valuables, including medications, at home the day of surgery. If you are going home after surgery, a licensed commercial front load driver must drive you home.? - NO public transportation without another adult if you receive anesthesia. - We recommend that an adult stay with you for 24 hours following discharge. - We also recommend that you do not drive, make important decision, drink alcoholic beverages, or take any drugs that were not prescribed by your health care provider for at least 24 hours after your discharge time. Follow any additional instructions given to you from your surgeon. Telephone instructions given to ____PATIENT & DAUGHTER and asked if any additional questions and then verbalized understanding. Patient advised to call surgeon office or pre surgery nurse liaison [phone] if any additional questions.
[2024-01-12] VITALS (8 sets, daily range): BP systolic 122–136; BP diastolic 50–69; PULSE 60–87; RESP 12–16; TEMP 36.3–36.6; O2SAT 94–100
--- NOTE | ~2024-01-12 | XR_ITS ---
EXAMINATION: [id number]_[id number]_CR DATE: 01/12/2024 14:26 INDICATION: Right total knee arthroplasty. Postop. TECHNIQUE: 2 views of right knee were obtained. COMPARISON: Right knee radiographs 06/11/2022 FINDINGS: There is total right knee arthroplasty with patellar resurfacing in near-anatomic alignment . No fracture. There is gas in the joint and soft tissues, consistent with recent surgery. IMPRESSION: 1. Total right knee arthroplasty in near-anatomic alignment. Reviewed, dictated and finalized at location A.
[2024-01-12 09:26] LABS: Glucose Point of Care 91 mg/dl (65-105)
[2024-01-12] MEDS: TRANEXAMIC ACID 1,000MG/ISO100 1,000 MG/100 ML BAG 200 MG IVPB ×2 (09:34→12:52)
[2024-01-12] MEDS: ACETAMINOPHEN 500 MG TABLET 1000 MG PO (09:34)
--- NOTE | 2024-01-12 09:44 | WPDANESEPPF ---
Anes - Initial Pre Proc Eval Procedure: Operation Date: 01/12/24 10:30 Proposed Procedures p Right Custom Total Knee Arthroplasty - Alonso Chapman MD Date/Time: 01/12/24 09:44 Surgeon: Alonso Chapman MD Pre Op Diagnosis: Prim O A Rt Knee Patient Data Age: 63 Gender: F Height: 1.64 m Weight: 83.4 kg Last Vital Signs Temp 36.3 C L 01/12/24 09:38 Pulse 60 01/12/24 09:38 Resp 16 01/12/24 09:38 BP 133/52 L 01/12/24 09:38 Pulse Ox 100 01/12/24 09:38 O2 Del Method Room Air 01/12/24 09:38 Allergies Allergy/AdvReac Type Severity Reaction Status Date / Time No Known Allergies Allergy Verified 01/12/24 09:32 Home Medications Medication Instructions Recorded Confirmed Type meloxicam 15 mg tablet 15 mg PO DAILY #90 tabs 08/07/21 01/12/24 Rx evening primrose oil 500 mg capsule 2,000 mg PO DAILY 11/27/22 01/12/24 History lisinopril 20 1 tablet PO QAM 11/27/22 12/21/23 History mg-hydrochlorothiazide 25 mg tablet tirzepatide 10 mg/0.5 mL 12.5 mg subcut WEEKLY 04/08/23 12/21/23 History subcutaneous pen injector (Mounjaro) atorvastatin 80 mg tablet 80 mg PO HS 08/05/23 12/21/23 History cholecalciferol (vitamin D3) 125 125 mcg PO DAILY 08/05/23 12/21/23 History mcg (5,000 unit) capsule fenofibrate nanocrystallized 145 145 mg PO HS 08/05/23 12/21/23 History mg tablet multivitamin 1 tablet PO DAILY 08/05/23 12/21/23 History amoxicillin 500 mg tablet 500 mg PO ONCE #4 tabs 12/21/23 12/21/23 Rx docusate sodium 50 mg capsule 50 mg PO DAILY 12/21/23 12/21/23 History magnesium 250 mg tablet 250 mg PO DAILY 12/21/23 12/21/23 History Laboratory Tests 01/12/24 09:21 POC Capillary Glucose 91 mg/dl (65-105) Patient hx anesthesia problems: none Family hx anesthesia problems: none Results Review: All pre-operative results and documents have been reviewed as part of the pre-operative evaluation. [facility] Past Medical History Medical History Abnormal glucose level Controlled diabetes mellitus type II without complication Edema HLD (hyperlipidemia) HTN (hypertension) Obesity RUDDY (obstructive sleep apnea) Osteoarthritis Skin tag Vitamin D deficiency Surgical History Surgical History History of bladder suspension procedure History of hysterectomy with bilateral oophorectomy History of lumpectomy of left breast benign History of total left knee replacement (TKR) Family History Family History Father Hypertension Family history of congestive heart failure, Onset Age: 52 Family history of obesity Patient's father is Family history of coronary artery disease, Onset Age: 52 Sibling Family history of coronary artery disease Family history of obesity Hypertension Family history of diabetes mellitus in first degree relative, Onset Age: 39 Family history of mental disorder Family history of eczema Patient's sister is in good health Patient's brother is in good health Family history of alcoholism Mother Family history of malignant neoplasm of urinary bladder, Onset Age: 70 Depression Patient's mother is in good health Family history of hearing loss Grandparent Family history of hearing loss Other Carcinoma of colon Family history of attention deficit hyperactivity disorder (ADHD) Family history of emphysema Family history of lung cancer Family history of pancreatic cancer Social History Social History Smoking status: Never smoker Second hand tobacco smoke exposure: Yes Additional smoking assessment comments: DENIES ANY FORM OF TOBACCO USE Alcohol intake: current Alcohol use details: 1 drink monthly Substance use: never Substance use type: does not use Do You Feel Safe in your Home?: Yes Lack
--- NOTE | 2024-01-12 10:09 | WPDHPUPDATE1 ---
History and Physical Update Update Date/Time: 01/12/24 10:09 History and Physical has been reviewed, including an updated exam of the patient. There are NO changes in the patient's condition. Risks, benefits, and alternatives have been discussed and questions answered. Patient agrees to proceed with procedure.
[2024-01-12] MEDS: ceFAZolin 2 GM/D5W 50 ML 2 GM/50 ML BAG IVPB (11:08)
--- NOTE | 2024-01-12 11:15 | WPDANESPNB ---
Anes - Peripheral Nerve Block Date/Time: 01/12/24 11:15 I have discussed with the patient/family/POA the placement of a peripheral nerve block for post-operative pain management, including associated risks, benefits, complications, and side effects. Alternative methods of post-operative analgesia were detailed. Questions were solicited and answers provided to the satisfaction of the patient/family/POA. Time-Out: A pre-procedural Time-Out was completed immediately before starting the procedure and confirmed: Patient Identification, Site, Procedure, Patient Position and the Availability of Requisite Equipment. Clinical Indications: Acute post-operative pain management requested by the operative surgeon. Nerve Block Insertion Note Anes-nerve block: adductor canal right Patient position: supine Skin prep: chlorhexidine Needle: 22 gauge, stimulating, insulated echogenic needle. Needle length: 80 mm Technique: ultrasound Injectate: bupivacaine 0.5% with epi 5 mcg/ml (30cc - no epi) Observations: tolerated well Complications: none Procedure start time:: 1053 Procedure end time:: 105
[2024-01-12] MEDS: SODIUM CHLORIDE 0.9% IV 37.7 ML, MORPHINE SULFATE INJ (*CRX) 2 MG, ROPivacaine HCL 1% 2... INFILTRATE (11:37)
[2024-01-12] MEDS: LACTATED RINGERS 1,000 ML 30 ML IV CONT ×2 (13:21→13:56)
[2024-01-12 13:28] LABS: Glucose Point of Care 115 mg/dl (65-105)
--- NOTE | 2024-01-12 13:49 | W.PM.PROC2 ---
Procedure Note - Detailed Date of Procedure 01/12/24 Pre-op Diagnosis DJD right knee. Post-op Diagnosis Same Procedure Performed Total knee arthroplasty, right. Surgeon Alonso Chapman MD [employer] Maryann Roque PA-C Anesthesia General and Regional (Subsartorial block.) Findings Custom TKA with optimal fit. Partial PCL release. Good bone quality. Description of Procedure Preoperative antibiotics were given. The limb was prepped and draped in the usual sterile fashion with a well-padded tourniquet high on the thigh. The limb was exsanguinated and the tourniquet inflated to 300 mmHg. A longitudinal incision was created just medial to the patella. A trivector approach to the knee was performed. Arthrotomy was taken down through the joint capsule. No significant releases were initially taken. The femur was exposed and the F1 jig was applied. The coring tool was used to remove the cartilage for the F2 jig to sit flush with the bone. The jig was pinned and the distal cut carefully taken. Caliper measurements confirmed appropriate bony resections according to the preoperative templated plan. The F4 cutting jig for the femur was applied, at the standard rotation. The AP and anterior chamfer cuts were taken. The F5 jig was applied and the posterior chamfer cuts were taken. The tibia was prepared using the T1 jig, after removing cartilage for the jig contact points. Proper alignment was checked with the alignment makayla. The tibia was cut using the T1u guide. Gap balancing was performed. Gap measurements were taken and the knee was trialed. Excellent alignment and soft tissue balancing was confirmed. The posterior cruciate ligament was recessed along the proximal tibia. The patella was cut for resurfacing. Three lug holes were drilled. Meniscal remnants were removed. The trial components were assembled. Excellent range of motion and proper soft tissue balancing were confirmed throughout the full range of motion. Patellar tracking was excellent. The knee was copiously irrigated periodically throughout the procedure. The real implants were cemented into position. Excess cement was carefully removed. The wound was closed in layers with interrupted #1 Vicryl suture, 2-0 strata fix suture, 0 strata fix suture, 2-0 strata fix suture. Steri-Strips placed on the skin with the knee flexed. Sterile bulky dressing applied. The patient was brought to the recovery room in stable condition. There were no complications. Physician environmental engineering assistant, Maryann Roque PA-C, required for surgery; including patient positioning, draping, tissue retraction, maintaining instrument position, cement removal, wound closure, and dressing placement. Implants Conformis Custom total knee arthroplasty. Cemented. Cruciate retaining. 6A insert. 32 mm round patella. Estimated Blood Loss 300 Drains No Complications No immediate complications Condition Stable Disposition PACU [facility] Billing Surgery - Charge Forward: Surgery Billing
--- NOTE | 2024-01-12 14:20 | SUR.PHASEII ---
PT AND OT NOTIFIED THAT PATIENT IS HERE FOR THERAPY. LUNCH ORDERED. PORTABLE XRAY DONE OF RIGHT KNEE.
--- NOTE | 2024-01-12 14:45 | SUR.PHASEII ---
PHYSICAL THERAPIST IN TO WORK WITH PATIENT.
--- NOTE | 2024-01-12 15:06 | SUR.PHASEII ---
EATING LUNCH, WAITING FOR OT.
--- NOTE | 2024-01-12 15:18 | SUR.PHASEII ---
OT HERE TO WORK WITH PATIENT.
--- NOTE | 2024-01-12 16:00 | SUR.PHASEII ---
DR. GARCIA CAME BACK TO SEE PATIENT. OKAY'D FOR HER TO GO HOME.
== END 2024-01-12 16:00 | disposition home or self-care (01) ==
PROVIDERS: PCP Nurse Practitioner; Visit Provider Orthopaedic Surgery
PROC: (CPT 27447; principal; 2024-01-12 10:30)
DX: M17.11 Unilateral primary osteoarthritis, right knee (principal); E11.9 Type 2 diabetes mellitus without complications; I10 Essential (primary) hypertension; E78.5 Hyperlipidemia, unspecified; G89.18 Other acute postprocedural pain; G47.33 Obstructive sleep apnea (adult) (pediatric); E55.9 Vitamin D deficiency, unspecified; E66.9 Obesity, unspecified; Z68.31 Body mass index [BMI] 31.0-31.9, adult; Z79.85 Long-term (current) use of injectable non-insulin antidiabetic drugs; Z98.890 Other specified postprocedural states; Z80.52 Family history of malignant neoplasm of bladder; Z80.1 Family history of malignant neoplasm of trachea, bronchus and lung; Z80.0 Family history of malignant neoplasm of digestive organs; Z82.49 Family history of ischemic heart disease and other diseases of the circulatory system
CPT/HCPCS: 64447; 27447; 36415; 73560; 82948; 86850; 86900; 86901; 97110; 97161; 97165; A9270; C1713; C1776; J0171; J0690; J1100; J1171; J1885; J2003; J2250; J2270; J2405; J2704; J2795; J3010; J7120

== ENCOUNTER 2024-03-02 08:12 | Outpatient (CLI) | payer BC, SELFPAY ==
--- NOTE | ~2024-03-02 | XR_ITS ---
XR knee RT 3V Ordering provider: Alonso Chapman MD History: . Z96.651 - Presence of right artificial knee joint . Comparison: None. FINDINGS: BONES: No acute fracture or dislocation. JOINT SPACES: Total knee arthroplasty. SOFT TISSUES: Normal. IMPRESSION: No acute osseous abnormality right knee. Total knee arthroplasty. Reviewed, dictated and finalized at location A. ITOMETER READER
== END 2024-03-02 08:13 | disposition home or self-care (01) ==
PROVIDERS: PCP Nurse Practitioner Family; Visit Provider Orthopaedic Surgery
DX: Z96.651 Presence of right artificial knee joint (principal)
CPT/HCPCS: 73562

== ENCOUNTER 2024-11-10 11:49 | Outpatient (CLI) | payer MEDICARE, SELFPAY ==
--- NOTE | ~2024-11-10 | DEXA_ITS ---
Bone Density Report Name: AISHA CASTELLON Age: 64 Sex: Female Ethnicity: White Date of : 1960 Indication: postmenopausal; screening for osteoporosis; height loss; hysterectomy; Referring Provider: HUY, PO Study: Bone densitometry was performed. Exam Date: November 10, 2024 Accession number: [id number] Bone Density: Region BMD T-score Z-score Classification AP Spine(L1-L4) 1.130 0.8 2.5 Normal Femoral Neck (Left) 0.686 -1.5 0.0 Osteopenia Total Hip (Left) 0.877 -0.5 0.7 Normal Femoral Neck (Right) 0.646 -1.8 -0.3 Osteopenia Total Hip (Right) 0.827 -0.9 0.3 Normal Total Hip Mean 0.852 -0.7 0.5 Normal World Health Organization criteria for BMD impression classify patients as: Normal (T-score at or above -1.0), Osteopenia (T-score between -1.0 and -2.5), or Osteoporosis (T-score at or below -2.5). 10-year Fracture Risk(1): Major Osteoporotic Fracture 9.4% Hip Fracture 1.2% Reported Risk Factors: [place] (), Neck BMD=0.646, BMI=33.4 (1) FRAX(R) Version 3.08. Fracture probability calculated for an untreated patient. Fracture probability may be lower if the patient has received treatment. Clinical Information Provided by Patient: Has used the following medications: Vitamin D Has the following medical conditions: Hysterectomy Patient maximum height was 64 Menopause Age: 49 No regular weight bearing exercise Drinks caffeinated beverages Onset of menses at age 13 Number of children 2 Impression: The patient has low bone mass, based on the Right Femoral Neck T-score. The patient has an estimated ten-year risk of hip fracture of 1.2% and an estimated ten-year risk of major fracture of 9.4%, based on the WHO FRAX algorithm. Discussion: BONE DENSITY IS LOW AT ONE OR MORE SKELETAL SITES. This patient's lowest T-score is low at one or more skeletal sites. It meets the World Health Organization's (WHO) criteria for ?low bone mass? (T-score between -1.0 and -2.5). The patient's 10-year risk of fracture as calculated by FRAX is less than the threshold where pharmacological therapy is recommended by the National Osteoporosis Foundation (NOF). However, all treatment decisions require clinical judgment and consideration of individual patient factors, including patient preferences, comorbidities, previous drug use, risk factors not captured in the FRAX model (e.g., frailty, falls, vitamin D deficiency, increased bone turnover, interval significant decline in bone density) and possible under or overestimation of fracture risk by FRAX. The patient should follow a healthful lifestyle (good nutrition with adequate calcium and vitamin D, and appropriate weight-bearing exercise). Follow-Up: Consider repeating this study in 2 to 3 years to reassess this patient's status, or sooner if there is some new clinical indication. Reported by: SHARON on 11/10/2024 1:09:00 PM. Reviewed, dictated and finalized at location A.
--- OUTSIDE RECORDS SUMMARY | 2024-11-10 11:55 | XMS_ITS | Encounter Summary ---
Author Organization [facility] Address [address] [place] [address] Care Team Providers Care Campus Ambassador Name Role Phone Berhane Easley MD Primary Care Provider [phone] Encounter Details Date Type Department Care Team (Latest Contact Info) Description 01/01/2005 Outpatient Historical HIS [facility] Berhane Do MD [address] [facility] [address] [place] [address] SCREENING MAMM-MAILG NEOPL NEC (Primary Dx) Social History Tobacco Use Types Packs/Day Years Used Date Smoking Tobacco: Never Assessed Comments Unknown Sex and Gender Information Value Date Recorded Sex Assigned at Not on file Legal Sex Female 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
--- OUTSIDE RECORDS SUMMARY | 2024-11-10 11:55 | XMS_ITS | Clinical Summary ---
Author Organization [facility] Address [address] [facility] [place] [address] Care Team Providers Care Director Of Loss Prevention Name Role Phone Berhane Easley MD Primary Care Provider [phone] Medications tirzepatide (Mounjaro) 7.5 mg/0.5 mL Pen Injector Inject 0.5 mL (7.5 mg) by subcutaneous injection every 7 days. 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 Gender Identity Not on file Sexual Orientation Not on file Plan of Treatment Health Maintenance Due Date Last Done Comments DTAP/TDAP/TD VACCINES (1 - Tdap) 09/09/1978 BREAST CANCER SCREENING 1999 COLORECTAL SCREENING 09/09/2004 Colorectal Cancer Screening 09/09/2004 FIT-DNA Q 3 years 09/09/2004 FIT/FOBT Q 1 year 09/09/2004 Flex Sig/CT Colonography Q 5 years 09/09/2004 PNEUMOCOCCAL VACCINE 50+ YEARS (1 of 1 - PCV) 09/10/19 10 ZOSTER VACCINE (1 of 2) 09/09/2009 OSTEOPOROSIS SCREENING 09/09/2024 INFLUENZA VACCINE (#1) 2024 RSV VACCINE (60+ or ) (1 - 1-dose 75+ series) 09/09/2034 Insurance [facility] DIRECTOR OF SAFETY AND SECURITY, [address] Commercial Care Teams Director Of Loss Prevention Relationship Specialty Start Date End Date Berhane Easley MD [address] [facility] [address] [place] [address] PCP - General 01/01/06
--- OUTSIDE RECORDS SUMMARY | 2024-11-10 11:55 | XMS_ITS | Encounter Summary ---
Author Organization [facility] Address [address] [place] [address] Care Team Providers Care Air Traffic Control Specialist Name Role Phone Berhane Easley MD Primary Care Provider [phone] Encounter Details Date Type Department Care Team (Latest Contact Info) Description 12/06/2003 Outpatient Historical HIS [facility] Lock, Vipul Avila MD NO ADDRESS ON FILE SCREENING MAMM-MAILG NEOPL-OTHER (Primary Dx) Social History Tobacco Use Types Packs/Day Years Used Date Smoking Tobacco: Never Assessed Comments Unknown Sex and Gender Information Value Date Recorded Sex Assigned at Not on file Legal Sex Female 5:10 AM AIR QUALITY INSTRUMENT SPECIALIST Gender Identity Not on file Sexual Orientation Not on file documented as of this encounter Plan of Treatment Not on file documented as of this encounter Visit Diagnoses Diagnosis Other screening mammogram- Primary documented in this encounter Care Teams Air Traffic Control Specialist Relationship Specialty Start Date End Date Berhane Easley MD [address] [facility] [address] [place] [address] PCP - General 01/01/06 documented as of this encounter
--- OUTSIDE RECORDS SUMMARY | 2024-11-10 11:55 | XMS_ITS | Clinical Summary ---
[facility] Organization [facility] [address] Address [address] [place] [address] Care Team Providers Care Butt Presser Name Role Phone Kiah Spence NP Primary Care Provider [phone] Allergies No known active allergies Medications xiomara xlwg-ssdltgwv-nror lenic ac (Almont Oil) 1,000 mg capsule Take 2,000 mg by mouth 2 (two) times a day Active senna-docusate (PERICOLACE) 8.6-50 mg Take 1 tablet by mouth daily Active cholecalciferol (VITAMIN D-3) 5,000 unit tablet Take 1 tablet (5,000 Units total) by mouth daily Active atorvastatin (LIPITOR) 80 mg tabletIndications: Hyperlipidemia, unspecified hyperlipidemia type TAKE 1 TABLET DAILY 90 tablet 3 024 Active lisinopriL (PRINIVIL,ZESTRIL) 20 mg tablet Take 1 tablet (20 mg total) by mouth daily 100 tablet 1 025 09/07 Active Mounjaro 12.5 mg/0.5 mL pen injector injectionIndicatio ns:Mixed hyperlipidemia due to type 2 diabetes mellitus (HCC) INJECT 12.5MG SUBCUTANEOUSLY ONCE EVERY 7 DAYS 4 mL 025 Active fenofibrate nanocrystallized (TRICOR) 145 mg tabletIndications: Hyperlipidemia, unspecified hyperlipidemia type Take 1 tablet (145 mg total) by mouth daily 90 tablet 3 025 Active fenofibrate nanocrystallized (TRICOR) 145 mg tablet TAKE 1 TABLET DAILY 90 tablet 3 024 10/25 Discontinued( Reorder) tirzepatide (MOUNJARO) 12.5 mg/0.5 mL pen injector injectionIndicatio ns:Mixed hyperlipidemia due to type 2 diabetes mellitus (HCC) Inject 0.5 mL (12.5 mg total) under the skin every 7 days 2 mL 025 10/17 Discontinued Active Problems Problem Noted Date Diagnosed Date Class 1 obesity with body ma ss index (BMI) of 31.0 to 31.9 in adult 09/28/2023 Overview (09/28/2023): Discussed the patient's BMI. The BMI is above average. BMI management plan is completed. BMI Follow-up includes: nutrition counseling, exercise counseling and education provided. H/O total knee replacement, left 09/28/2023 Overview (09/28/2023): Continue to follow-up with orthopedics as directed. Follow-up in 6 months or sooner as needed Pre-op examination 08/17/2023 Screening for colon cancer 01/08/2023 BMI 31.0-31.9,adult 12/30/2019 Assessment & Plan (08/05/2024 9:08 AM CDT): Discussed the patients BMI: The BMI is above average BMI management is complete. BMI follow-up includes: Nutrition Counseling and education provided Assessment & Plan (02/11/2024 11:29 AM SENIOR SALES REPRESENTATIVE): Discussed the patients BMI: The BMI is above average BMI management is complete. BMI follow-up includes: Nutrition Counseling and education provided Assessment & Plan (12/14/2023 7:39 AM CDT): Discussed the patients BMI: The BMI is above average BMI management is complete. BMI follow-up includes: Nutrition Counseling and education provided Assessment & Plan (09/28/2023 9:48 AM CDT): Discussed the patient's BMI. The BMI is above average. BMI management plan is completed. BMI Follow-up includes: nutrition counseling, exercise counseling and education provided. Assessment & Plan (08/17/2023 7:31 AM CDT): Discussed the patient's BMI. The BMI is above average. BMI management plan is completed. BMI Follow-up includes: nutrition counseling, exercise counseling and education provided. Assessment & Plan (07/10/2023 8:00 AM CDT): Discussed the patients BMI: The BMI is above average BMI management is complete. BMI follow-up includes: Nutrition Counseling and education provided Assessment & Plan (01/08/2023 8:50 AM CDT): Discussed the patients BMI: The BMI is above average BMI management is complete. 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 BMI follow-up includes: Nutrition Counseling and education provided Hypertension associated with diabetes 08/20/2013 Overview (07/11/2016): HYPERTENSION NOS Mixed hyperlipidemia due to type 2 diabetes cayden itus 08/20/2013 Overview (07/11/2016): DYSMETABOLIC SYNDROME X Pelvic mass 09/28/2009 Encounters Date Type Department Care Team Description 10/25/2024 Telephone [facility] [address] [place] [address] Kiah Spence, INNOVATIONS PARAPROFESSIONAL 09/21/2024 Orders Only [facility] [address] [place] [address] ProviderFélix MD 09/21/2024 Telephone [facility] [address] [place] [address] Kiah Spence, INNOVATIONS PARAPROFESSIONAL 08/24/2024 Orders Only [facility] [place] [address] [place] [address] Provider, MD Félix from Last 3 Months Immunizations Immunization Administration Dates Next Due Influenza, Quadrivalent, Anita l Culture-based MDCK, Preservative Free, Antibiotic Free, Intramuscular 01/02/2020 Influenza, Quadrivalent, Spl it, Preservative Free, Intramuscular 01/08/2023,01/06/2019,01/14/2018 Influenza, Trivalent, Adjuva nted, Intramuscular 12/16/2016 Influenza, Trivalent, Preser vative Free, Intramuscular 02/11/2024,12/18/2015,01/17/2015 Influenza, Unspecified 04/06/2024(Deferr ed: Patient Refused),04/06/2022(Deferred: Patient Refused),12/07/2014,05/24/2014, 014,11/10/2012 ZOSTER LIVE 12/07/2014 ZOSTER Recombinant 07/11/2019,01/06/2019 Surgical History Surgery Date Site/Laterality Comments INCONTINENCE SURGERY 08/04/2017 - 09/03/2017 BREAST EXCISIONAL BIOPSY 03/06/2012 - 04/05/2012 Bilate ral benign BLADDER SUSPENSION 04/06/2017 - 04/05/2018 HYSTERECTOMY 04/06/2009 - 04/05/2010 Hysterectomy JOINT REPLACEMENT 09/01/2023 Left Medical History Medical History Date Comments Hx Other Medical 2009 haemoidectomy Hyperlipidemia Hyperlipidemia High blood pressure High cholesterol Knee pain Headache Type 2 diabetes mellitus Arthritis Family History Medical History Relation Name Comments Sleep disorder Brother Coronary artery disease Father Sleep disorder Father Bladder Cancer Mother Other Other 1 Family history of Diabetes -Type 1; Thyroid disease Other 2 Family histo ry of Thyroid disorder; Relation Name Status Comments Brother Father Mother Alive Other 1 Other 2 Social History Tobacco Use Types Packs/Day Years Used Date Smoking Tobacco: Never Smokeless Tobacco: Never Tobacco Cessation:Counseling Given: Not Answered Alcohol Use Standard Drinks/Week Comments No 0 (1 standard drink = 0.6 oz pur e alcohol) PHQ-2 Answer Date Recorded PHQ-2 Total Score (If total score is 3 or more points, staff should administer the PHQ-9) 0 08/05/2024 Comments No Sex and Gender Information Value Date Recorded Sex Assigned at Not on file Legal Sex Female 11:43 PM SENIOR SALES REPRESENTATIVE Gender Identity Female 12/30/2023 7:50 PM CDT Sexual Orientation Straight 12/30/2023 7: 51 PM CDT Obstetrics History Para Term AB IAB SAB Ectopic Multiple Livin g Live Births 3 2 2 Date Outcome GA Total Labor Labor/2nd/3rd Weight Sex Type Anes PTL Nancy A1 A5 Name Clin Term Term Last Filed Vital Signs Vital Sign Reading Time Taken Comments Blood Pressure 120/58 08/05/2024 9:05 AM CDT Pulse 78 08/05/2024 9:05 AM CDT Temperature 37.1 C (98.7 F) 08/05/2024 9:05 AM CDT Respiratory Rate 16 09/28/2023 9:44 AM CDT Oxygen Saturation 98% 08/05/2024 9:05 AM CDT Inhaled Oxygen Concentration - - Weight 84.8 kg (187 lb) 08/05/2024 9:05 AM CDT Height 163.8 cm (5' 4.5) 08/05/2024 9:05 AM CDT Body Mass Index 31.6 08/05/2024 9:05 AM CDT Plan of Treatment Health Maintenance Due Date Last Done Comments Hepatitis C Screening 1960 Osteoporosis Screening-Bone Density Scan 1959 Foot Exam 1959 DTaP/Tdap/Td Vaccine (1 - Tdap) 09/09/1970 Hepatitis B Screening 09/09/1977 Pneumococcal vaccine 65+ (1 of 2 - PCV) 09/09/1978 Breast Cancer Screening-Mammogram 11/08/2023 11/07/2022, 08/27/2020, 08/25/2019 Dilated Eye Exam 11/17/2024 11/18/2023, , 11/18/2023 Influenza Vaccine (#1) 2024 4, 01/08/2023, 01/02/2020, Additional history exists Well Visit 65+ 12/13/2024 12/14/2023, 01/08/2023 Hemoglobin A1C 02/01/2025 08/02/2024, 03/05/2023, 01/08/2023 Albumin Creatinine Ratio, Urine 08/02/2025 5, 06/26/2023 Lipid Panel 08/02/2025 08/02/2024, 06/26/2023 eGFR 08/02/2025 08/02/2024, 06/26/2023 Depression Screening 08/05/2025 08/05/2024, 06/01/2024, 02/11/2024, Additional history exists Fall Risk Assessment 08/05/2025 08/05/2024, 06/01/2024, 02/11/2024, Additional history exists Colon Cancer Screening-Colonoscopy 12/12/2032 12/12/2022, 12/12/2022 Zoster Vaccine Completed 07/11/2019, 1006/2018, 12/07/2014 Colon Cancer Screening-CT Colonography Discontinued 12/12/2022 Colon Cancer Screening-DNA Stool Discontinued 12/13/19 Colon Cancer Screening-FIT Discontinued 12/12/2022 Colon Cancer Screening-Sigmoidoscopy Discontinued 12/12/2022 Procedures Procedure Name Priority Date/Time Associated Diagnosis Comments COMPREHENSIVE METABOLIC PANEL Routine 08/02/2024 6:50 AM CDT Hypertension associated with diabetes (HCC) HEMOGLOBIN A1C Routine 08/02/2024 6:50 AM CDT Hypertension associated with diabetes (HCC) Mixed hyperlipidemia due to type 2 diabetes mellitus (HCC) LIPID PANEL Routine 08/02/2024 6:50 AM CDT Mixed hyperlipidemia due to type 2 diabetes mellitus (HCC) ALBUMIN CREATININE RATIO, URINE Routine 08/02/2024 6:50 AM CDT Hypertension associated with diabetes (HCC) DIABETIC EYE EXAM Routine 11/18/2023 COLONOSCOPY Routine 12/12/2022 2:34 PM CDT SCREENING MAMMOGRAM BILATERAL W ERNESTO Schedule Routine, Read Routine (OP Routine) 11/07/2022 2:42 PM CDT Screening mammogram, encounter for from Last 3 Months or Most Recently Relevant to Health Maintenance Results * Albumin Creatinine Ratio, Urine (08/02/2024 6:50 AM CDT) Creatinine, ur 126 20 - 275 mg/dL [facility] Microalbumin, ur 0.9 See Note: mg/dL [facility] Comment: Reference Range: Reference Range Not established Microalbumin/creat ratio 7 <30 mg/g creat [facility] Comment: The ADA defines abnormalities in albumin excretion as follows: Albuminuria Category Result (mg/g creatinine) Normal to Mildly increased <30 Moderately increased 30-299 Severely increased > OR = 300 The ADA recommends that at least two of three specimens collected within a 3-6 month period be abnormal before considering a patient to be within a diagnostic category. Urine 08/02/2024 6:50 AM CDT 08/02/2024 6:50 AM CDT Narrative [facility] - 08/03/2024 4:33 AM CDT FASTING:YES FASTING: YES Kiah Spence NP LAB URINE ORDERABLES Final Re sult [facility] [address] [place] [address] * (ABNORMAL) Hemoglobin A1c (08/02/2024 6:50 AM CDT) Hgb A1C 5.7(H) <5.7 % of total Hgb [facility] Comment: For someone without known diabetes, a hemoglobin A1c value between 5.7% and 6.4% is consistent with prediabetes and should be confirmed with a follow-up test. For someone with known diabetes, a value <7% indicates that their diabetes is well controlled. A1c targets should be individualized based on duration of diabetes, age, comorbid conditions, and other considerations. This assay result is consistent with an increased risk of diabetes. Currently, no consensus exists regarding use of hemoglobin A1c for diagnosis of diabetes for children. Blood 08/02/2024 6:50 AM CDT 08/02/2024 6:50 AM CDT Narrative [facility] - 08/03/2024 4:33 AM CDT FASTING:YES FASTING: YES Kiah Spence NP LAB BLOOD ORDERABLES Final Re sult [facility] [address] [place] [address] * Lipid panel (08/02/2024 6:50 AM CDT) Pathologist [facility] Cholesterol 143 <200 mg/dL [facility] HDL 63 > OR = 50 mg/dL [facility] Triglycerides 73 <150 mg/dL [facility] LDL 65 mg/dL (calc) [facility] Comment: Reference range: <100 Desirable range <100 mg/dL for primary prevention; <70 mg/dL for patients with CHD or diabetic patients with > or = 2 CHD risk factors. LDL-C is now calculated using the Rolo-Andrez calculation, which is a validated novel method providing better accuracy than the Friedewald equation in the estimation of LDL-C. Rolo SS et al. KEVIN. 2013;310(19): 6476-2764 (http://education.[employer]/faq/UWI980) Chol/HDL ratio 2.3 <5.0 (calc) [facility] Non-HDL, (LDL+VLDL) 80 <130 mg/dL (calc) [facility] Comment: For patients with diabetes plus 1 major ASCVD risk factor, treating to a non-HDL-C goal of <100 mg/dL (LDL-C of <70 mg/dL) is considered a therapeutic option. Blood 08/02/2024 6:50 AM CDT 08/02/2024 6:50 AM CDT Narrative [facility] - 08/03/2024 4:33 AM CDT FASTING:YES FASTING: YES us Kiah Spence NP LAB BLOOD ORDERABLES Final Re sult [facility] [address] [place] [address] * (ABNORMAL) Comprehensive metabolic panel (08/02/2024 6:50 AM CDT) Glucose 101(H) 65 - 99 mg/dL [facility] Comment: Fasting reference interval For someone without known diabetes, a glucose value between 100 and 125 mg/dL is consistent with prediabetes and should be confirmed with a follow-up test. BUN 21 7 - 25 mg/dL [facility] Creatinine 0.67 0.50 - 1.05 mg/dL [facility] eGFR 98 > OR = 60 mL/min/1.7 3m2 [facility] BUN/creat ratio SEE NOTE: 6 - 22 (calc) [facility] Comment: Not Reported: BUN and Creatinine are within reference range. Sodium 139 135 - 146 mmol/L [facility] Potassium, pl 4.6 3.5 - 5.3 mmol/L [facility] Chloride 105 98 - 110 mmol/L [facility] CO2 30 20 - 32 mmol/L [facility] Calcium 9.8 8.6 - 10.4 mg/dL [facility] Protein, sr 6.7 6.1 - 8.1 g/dL [facility] Albumin 4.2 3.6 - 5.1 g/dL [facility] GLOBULIN 2.5 1.9 - 3.7 g/dL (calc) [facility] Alb/glob ratio 1.7 1.0 - 2.5 (calc) [facility] Bilirubin, total 0.6 0.2 - 1.2 mg/dL [facility] Alk phos 59 37 - 153 U/L [facility] AST 16 10 - 35 U/L [facility] ALT (SGPT) 20 6 - 29 U/L [facility] Blood 08/02/2024 6:50 AM CDT 08/02/2024 6:50 AM CDT Narrative [facility] - 08/03/2024 4:33 AM CDT FASTING:YES FASTING: YES Kiah Spence INNOVATIONS PARAPROFESSIONAL LAB BLOOD ORDERABLES Final Re sult PRI[facility] [address] [facility] [place] [address] * Diabetic Eye Exam (11/18/2023) 11/18/2023 Historical Provider HEALTH MAINTENANCE Edited Result - Final * Colonoscopy (12/12/2022 2:34 PM CDT) Anatomical Region Laterality Modality Other Historical Provider ENDOSCOPY PROCEDURES Edit ed Result - Final * Screening Mammogram Bilateral W Ernesto (11/07/2022 2:42 PM CDT) Anatomical Region Laterality Modality Breast Bilateral Mammography Impressions 11/13/2022 2:59 PM CDT BI-RADS ATLAS category (overall): 2 - Benign There is no mammographic evidence of malignancy. A 1 year screening mammogram is recommended. The patient has been or will be contacted. We recommend annual screening mammography for women at average risk of breast cancer beginning at age 40, based on guidelines of the [employer] (ACR Practice Parameter for the Performance of Screening and Diagnostic Mammography) and [place] [employer]etric[employer]nec[employer]. For women with and elevated risk of breast cancer, please refer to the ACR Practice Parameter for specific screening recommendations. The patient will be entered into a reminder system with a target due date of 1 year for her next screening exam. Narrative 11/13/2022 2:59 PM CDT Screening Mammogram Bilateral W Ernesto: 11/07/22 The study was acquired using full field digital technology and interpreted from soft copy. 2D digital mammographic views, as well as 3D digital tomosynthesis were performed in the CC and MLO projections. CLINICAL: Screening mammogram, encounter for. No relevant medical history has been documented for this patient. No known family history of breast cancer. COMPARISONS: 08/27/2020 Diagnostic Mammogram Bilateral W Ernesto 08/27/2020 US Breast Right Limited 08/25/2019 Diagnostic Mammogram Bilateral W Ernesto 08/25/2019 US Breast Right Limited 02/24/2019 US Breast Right Limited 08/17/2018 US Breast Right Limited 08/17/2018 Diagnostic Mammogram Right W Ernesto BREAST TISSUE: The breasts are heterogeneously dense, which may obscure small masses. FINDINGS: There are postoperative findings in the left breast. There is a biopsy clip in the right breast. There are benign calcifications in both breasts. There is no new suspicious finding in either breast on mammogram. us Self Screening Mammogram IMG MAMMO PROCEDURES Fi nal Result from Last 3 Months or Most Recently Relevant to Health Maintenance Insurance [facility] [place] [address] [facility] Address: [facility] [id number] [place] [address] Care Teams Butt Presser Relationship Specialty Start Date End Date Kiah Spence NP [address] [facility] [address] [place] [address] PCP - General Internal Medicine 01/08/23
--- OUTSIDE RECORDS SUMMARY | 2024-11-10 11:55 | XMS_ITS | Encounter Summary ---
Author Organization [facility] Address [address] [place] [address] Care Team Providers Care [facility] Name Role Phone Berhane Easley MD Primary Care Provider [phone] Encounter Details Date Type Department Care Team (Late st Contact Info) Description 01/01/2006 Outpatient Historical HIS [facility] Alexis Cordoba MD [address] [place] [address] Other Screening Mammogram (Primary Dx) Social History Tobacco Use Types Packs/Day Years Used Date Smoking Tobacco: Never Assessed Comments Unknown Sex and Gender Information Value Date Recorded Sex Assigned at Not on file Legal Sex Female 5:10 AM HAT LINER Gender Identity Not on file Sexual Orientation Not on file documented as of this encounter Plan of Treatment Not on file documented as of this encounter Visit Diagnoses Diagnosis Other screening mammogram- Primary documented in this encounter Care Teams [facility] Home [facility] Relationship Specialty Start Date End Date Berhane Easley MD [address] [facility] [address] [place] [address] PCP - General 01/01/06 documented as of this encounter
--- OUTSIDE RECORDS SUMMARY | 2024-11-10 11:55 | XMS_ITS | Clinical Summary ---
Author Organization [facility] Address [address] [place] [address] Care Team Providers Care Data Mining Analyst Name Role Phone Jessica Lomax MD Primary Care Provider [phone] Source Comments [facility],non-owned Affiliates and Associated Physician Practices is amultiple site organization consisting of ambulatory clinics and hospital sitesin [place], [place], [place] and [place]. This disclosure is being madepursuant to the Care Everywhere program and may not contain all information available regarding this patient. Last updated 17.[facility] [employer] Allergies No known active allergies Medications * Be aware that medications may not be up to date on this document. Alwaysverify current medications with the patient. VYTORIN 10-40 MG TABS Take 1 Tab by mouth at bedtime. Active CITALOPRAM HYDROBROMIDE PO Take by mouth. Active docusate sodium (COLACE) 100 MG capsule Take 1 Cap by mouth 2 times daily. 60 0 10/13/2009 Active ibuprofen (MOTRIN) 600 MG tablet Take 1 Tab by mouth every 6 hours as needed for Pain. 60 0 10/13/2009 Active hydrocodone-aceta minophen (VICODIN) 5-500 MG tablet Take 1-2 Tabs by mouth every 6 hours as needed for Pain. 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 Gender Identity Not on file Sexual Orientation Not on file Last Filed Vital Signs Vital Sign Reading Time Taken Comments Blood Pressure 140/80 11/07/2009 10:39 AM CDT Pulse 82 10/13/2009 11:35 AM CDT Temperature 37.2 C (99 F) 10/13/2009 11:35 AM CDT Respiratory Rate 20 10/13/2009 11:35 AM CDT Oxygen Saturation 97% 10/13/2009 11:35 AM CDT Inhaled Oxygen Concentration - - Weight 101.6 kg (224 lb) 11/07/2009 10:39 AM CDT Height 162.6 cm (5' 4) 10/11/2009 11:18 AM CDT Body Mass Index 38.45 10/11/2009 11:18 AM CDT Plan of Treatment Health Maintenance Due Date Last Done Comments BONE DENSITY TESTING 1960 COLOGUARD (AGES 45-75) - COL ON CA SCREENING 1960 COLON MONITORING 1959 COLONOSCOPY - COLON CA SCREENING [address] CT COLONOGRAPHY - COLON CA SCREENING 1960 Colorectal Cancer Screening 1960 FIT - COLON CA SCREENING 1959 FLEX SIG - COLON CA SCREENING 1960 HIV SCREENING 09/09/1974 HEPATITIS C SCREENING 09/05/1977 DTAP/TDAP/TD VACCINES (1 - Tdap) 09/09/1978 PNEUMOCOCCAL VACCINE 50+ (1 of 1 - PCV) 09/09/2009 ZOSTER VACCINE (1 of 2) 09/09/2009 MAMMOGRAM 08/17/2010 08/17/2008, 07/09/2007 COVID-19 VACCINE ( - 2023-2 5 season) 2023 DEPRESSION SCREENING 04/06/2024 INFLUENZA VACCINE (#1) 2024 Respiratory Syncytial Virus (RSV) Vaccine Pt: or over 60 yrs (1 - 1-dose 75+ series) 09/09/2034 HEPATITIS B VACCINE Aged Out No longe r eligible based on patient's age to complete this topic HIB VACCINE Aged Out No longer eligi ble based on patient's age to complete this topic HPV VACCINE Aged Out No longer eligi ble based on patient's age to complete this topic MENINGOCOCCAL (Group B) VACCINE SHARED DECISION-MAKING Aged Out No longer eligible based on patient's age to complete this topic MENINGOCOCCAL GROUPS A/C/Y/W VACCINE Aged Out No longer eligible b ased on patient's age to complete this topic Procedures Procedure Name Priority Date/Time Associated Diagnosis Comments MAMMO SCREENING BILATERAL Routine 08/17/2008 7:30 AM CDT Other Screening Mammogram from Last 3 Months or Most Recently Relevant to Health Maintenance Results * MAMMO SCREENING BILATERAL (08/17/2008 7:30 AM CDT) Anatomical Region Laterality Modality Breast Mammography 08/17/2008 2:04 PM CDT Impressions 08/17/2008 3:18 PM CDT No Mammographic Evidence of Malignancy. BIRADS: 2 benign. Recommendation: Annual Screening Mammograms. 's Narrative 08/17/2008 3:18 PM CDT Exam: Bilateral Screening Mammograms. Comparison: 07/09/2007 Findings: Bilateral screening mammograms were obtained. CAD was utilized in the interpretation of this exam. The breast composition is moderately dense was scattered fibroglandular densities. There is no evidence of a dominant mass, spiculation, grouped microcalcifications, or architectural distortion to suggest malignancy. The fibroglandular pattern has remained stable. Procedure Note Kiearn Schneider MD / Lynette Pettit, RT(R)(M) - 08/17/2008 Exam: Bilateral Screening Mammograms. Comparison: 07/09/2007 Findings: Bilateral screening mammograms were obtained. CAD was utilized in the interpretation of this exam. The breast composition is moderately dense was scattered fibroglandular densities. There is no evidence of a dominant mass, spiculation, grouped microcalcifications, or architectural distortion to suggest malignancy. The fibroglandular pattern has remained stable. IMPRESSION No Mammographic Evidence of Malignancy. BIRADS: 2 benign. Recommendation: Annual Screening Mammograms. 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
== END 2024-11-10 11:50 | disposition home or self-care (01) ==
PROVIDERS: PCP Nurse Practitioner Family; Visit Provider Nurse Practitioner
DX: Z78.0 Asymptomatic menopausal state (principal); M85.89 Other specified disorders of bone density and structure, multiple sites
CPT/HCPCS: 77080

== ENCOUNTER 2024-12-30 07:47 | Outpatient (CLI) | payer MEDICARE, SELFPAY ==
--- OUTSIDE RECORDS SUMMARY | 2023-11-02 11:30 | XMS_ITS | Continuity of Care Document ---
Author Organization [facility] Address [address] [place] [address] Phone Care Team Providers Care Pressing Machine Operator Name Role Phone Bhargav Elam MD Unavailable Unavailable Procedures Procedure Date LOWER EXTREM CAT W/O CONTRAST 4 LOWER EXTREM CAT W/O CONTRAST 4 Advance Directives Directive Yes / No Effective Date File Name No Information Encounters Encounter Description Practice Location Reason(s) For Visit Diagnoses Date Provider Providers Copied on Encounter [facility], [address], [place], [place], [id number], tel:[phone] [facility] No Information Papa Durant. [address], [place], [id number], . tel:[phone] Referring Provider: Alonso Chapman [address] [place] [address], [facility]. tel:[phone] [facility], [address], [place], [id number], tel:[phone] [facility] No Information Abel Hightower. [address], [place], [id number], . tel:[phone] Referring Provider: Alonso Chapman [address] [place] [address], [facility]. tel:[phone] Family History Family Member Type Diagnosis Age At Onset No Information Payers Payer name Insurance type Covered green party ID Authoriza tion(s) No Information Social History Type Description Quantity Date Captured Comments Sex Female Smoking Status No Information Chief Complaint And Reason For Visit No Information Reason For Referral Reason For Referral No Information History Of Present Illness Encounter Date Complaint History Of Prese nt Illness No Information Functional Status Date Functional Assessmen t No Information Instructions Date Instruction Additional Infor mation No Information Assessments Type Assessment Date No Information Patient Care Teams Name Effective Dates (start - stop) Status Members No Information
--- NOTE | ~2024-12-30 | MM_ITS ---
EXAMINATION: MM screening [facility] BI w kia HISTORY: Screening TECHNIQUE: Craniocaudal and mediolateral oblique 3-D tomosynthesis images were obtained and synthetic 2-D images were generated. CAD analysis was submitted and interpreted. COMPARISON: Comparison to multiple prior studies sequentially, with oldest reviewed study dated 06/04/2016. BREAST PARENCHYMAL COMPOSITION: The breasts are heterogeneously dense, which may obscure small masses. FINDINGS: There is no evidence of suspicious mass, calcification, or architectural distortion to suggest malignancy in either breast. Scattered benign-appearing calcifications are present. Biopsy clips in both breasts. IMPRESSION: 1. No mammographic evidence of malignancy. 2. Recommend routine screening mammography in one year. BI-RADS Category 2: Benign finding(s). Reviewed, dictated and finalized at location C.
--- OUTSIDE RECORDS SUMMARY | 2024-12-30 07:53 | XMS_ITS | Encounter Summary ---
Author Organization [facility] Address [address] [place] [address] Care Team Providers Care Market Research Interviewer Name Role Phone Kiah Spence NP Primary Care Provider [phone] Encounter Details Date Type Department Care Team (Late st Contact Info) Description 11/22/2024 Results Follow-Up [facility] Family Medicine [address] [place] [address] Kiah Spence, MANAGER OF HOUSEKEEPING [address] [place] [address] DEXA SCAN Social History Tobacco Use Types Packs/Day Years Used Date Smoking Tobacco: Never Smokeless Tobacco: Never Alcohol Use Standard Drinks/Week Comments No 0 (1 standard drink = 0.6 oz pur e alcohol) PHQ-2 Answer Date Recorded PHQ-2 Total Score (If total score is 3 or more points, staff should administer the PHQ-9) 0 08/05/2024 Comments No Sex and Gender Information Value Date Recorded Sex Assigned at Not on file 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 [address] [address] [address] [place] [address] PCP - General Internal Medicine 01/08/23 documented as of this encounter
--- OUTSIDE RECORDS SUMMARY | 2024-12-30 07:53 | XMS_ITS | Clinical Summary ---
Author Organization [facility] [address] Address [address] [place] [address] Care Team Providers Care Reworker Name Role Phone Kiah Spence NP Primary Care Provider [phone] Allergies No known active allergies Medications xiomara ulbc-srxctgsi-pxsezmd ic ac (Russell Oil) 1,000 mg capsule Take 2,000 mg by mouth 2 (two) times a day Active senna-docusate (PERICOLACE) 8.6-50 mg Take 1 tablet by mouth daily Active cholecalciferol (VITAMIN D-3) 5,000 unit tablet Take 1 tablet (5,000 Units total) by mouth daily Active fenofibrate nanocrystallized (TRICOR) 145 mg tabletIndications:Hyp erlipidemia, unspecified hyperlipidemia type Take 1 tablet (145 mg total) by mouth daily 90 tablet 3 5 Active atorvastatin (LIPITOR) 80 mg tabletIndications:Hyp erlipidemia, unspecified hyperlipidemia type Take 1 tablet (80 mg total) by mouth daily 90 tablet 3 5 Active lisinopriL (PRINIVIL,ZESTRIL) 20 mg tabletIndications:Hyp ertension associated with diabetes (HCC) Take 1 tablet (20 mg total) by mouth daily 100 tablet 2 5 11/18/19 26 Active tirzepatide (Mounjaro) 12.5 mg/0.5 mL pen injector injectionIndications: Mixed hyperlipidemia due to type 2 diabetes mellitus (HCC) Inject 0.5 mL (12.5 mg total) under the skin every 7 days 6 mL 5 Active Active Problems Problem Noted Date Diagnosed [...] provided Assessment & Plan (02/11/2024 11:29 AM FLOORLEADER): Discussed the patients BMI: The BMI is [...] Encounters Date Type Department Care Team Description 12/14/2024 Orders Only [facility] Medicine [address] [place] [address] Provider, MD Félix 11/24/2024 Telephone [facility] Medicine [address] [place] [address] Kiah Spence, TRENCH PIPE LAYER HELPER 11/22/2024 Results Follow-Up [address] [place] [address] Kiah Spence, TRENCH PIPE LAYER HELPER DEXA SCAN 11/17/[address] [place] [address] Kiah Spence, NEIL 11/15/2024 Orders Only [address] [place] [address] Provider, MD Félix 10/25/[address] [place] [address] Kiah Spence, TRENCH PIPE LAYER HELPER from Last 3 Months Immunizations Immunization Administration [...] on file Legal Sex Female 11:43 PM FLOORLEADER Gender Identity Female 12/30/2023 7:50 PM CDT [...] Last Done Comments Hepatitis C Screening 1960 Foot Exam 1960 DTaP/Tdap/Td Vaccine (1 - Tdap) 09/09/1970 Hepatitis B Screening 09/09/1977 Pneumococcal vaccine 65+ (1 of 2 - PCV) 09/09/1978 Dilated Eye Exam 11/17/2024 11/18/2023, , 11/18/2023 Influenza Vaccine (#1) 2024 4, 01/08/2023, 01/02/2020, Additional history exists Well Visit 65+ 12/13/2024 12/14/2023, 01/08/2023 Hemoglobin A1C 02/01/2025 08/02/2024, 03/2 05/2023, 01/08/2023 Albumin Creatinine Ratio, Urine 08/02/2025 5, 06/26/2023 Lipid Panel 08/02/2025 08/02/2024, 06/26/2023 eGFR 08/02/2025 08/02/2024, 06/26/2023 Depression Screening 08/05/2025 08/05/2024, 06/01/2024, 02/11/2024, Additional history exists Fall Risk Assessment 08/05/2025 08/05/2024, 06/01/2024, 02/11/2024, Additional history exists Breast Cancer Screening-Mammogram 12/13/2025 12/13/2024, 11/07/2022, 08/27/2020, Additional history exists Osteoporosis Screening-Bone Density Scan 11/10/2026 11/10/2024 Colon Cancer Screening-Colonoscopy 12/12/2032 12/12/2022, 12/12/2022 Zoster Vaccine Completed 07/11/2019, 10/0 06/2018, 12/07/2014 Colon Cancer Screening-CT Colonography Discontinued 12/12/2022 Colon Cancer Screening-DNA Stool Discontinued 12/13/19 Colon Cancer Screening-FIT Discontinued 12/12/2022 Colon Cancer Screening-Sigmoidoscopy Discontinued 12/12/2022 Procedures Procedure Name Priority Date/Time Associated Diagnosis Comments MAMMOGRAPHY Routine 12/13/2024 10:35 AM CDT DEXA SCAN Routine 11/10/2024 1:17 PM CDT COMPREHENSIVE METABOLIC PANEL Routine 08/02/2024 6:50 AM [...] 11/18/2023 COLONOSCOPY Routine 12/12/2022 2:34 PM CDT from Last 3 Months or Most Recently Relevant to Health Maintenance Results * MAMMOGRAPHY (12/13/2024 10:35 AM CDT) Mammography Normal Historical Provider HEALTH MAINTENANCE Edited Result - Final * (ABNORMAL) DEXA SCAN (11/10/2024 1:17 PM CDT) Scribed Deca Scan Abnormal Historical Provider HEALTH MAINTENANCE Edited Result - Final * Albumin Creatinine Ratio, Urine (08/02/2024 6:50 [...] AM CDT FASTING:YES FASTING: YES Kiah Spence TRENCH PIPE LAYER HELPER LAB URINE ORDERABLES Final Re sult [facility] [address] [id number] * (ABNORMAL) Hemoglobin A1c (08/02/2024 6:50 AM CDT) Hgb A1C 5.7(H) <5.7 % of total Hgb [facility] Schwarz Comment: For someone without known diabetes, [...] AM CDT FASTING:YES FASTING: YES Kiah Spence TRENCH PIPE LAYER HELPER LAB BLOOD ORDERABLES Final Re sult [facility] [address] [place] [address] * Lipid panel (08/02/2024 6:50 AM CDT) Cholesterol 143 <200 mg/dL [facility] [...] factors. LDL-C is now calculated using the Alden calculation, which is a validated novel method providing better accuracy than the Friedewald equation in the estimation of LDL-C. Rolo SS et al. KEVIN. 2013;310(19): 8704-2051 (http://education.Workspace.[employer]/faq/UCD387) Chol/HDL ratio 2.3 <5.0 (calc) [facility] [...] CDT FASTING:YES FASTING: YES us Kiah Spence TRENCH PIPE LAYER HELPER LAB BLOOD ORDERABLES Final Re sult [facility] [address] [place] [address] * (ABNORMAL) Comprehensive metabolic panel (08/02/2024 6:50 AM CDT) [facility] Glucose 101(H) 65 - 99 mg/dL [facility] [...] AM CDT FASTING:YES FASTING: YES Kiah Spence TRENCH PIPE LAYER HELPER LAB BLOOD ORDERABLES Final Re sult [facility] [address] [place] [address] * Diabetic Eye Exam (11/18/2023) 11/18/2023 Historical Provider HEALTH MAINTENANCE Edited Result - Final * Colonoscopy (12/12/2022 2:34 PM CDT) Anatomical Region Laterality Modality Other Historical Provider ENDOSCOPY PROCEDURES Edit ed Result - Final from Last 3 Months or Most Recently Relevant to Health Maintenance Insurance [facility] MEDICARE ADVANTAGE [facility] CHOICE OOS Care Teams Reworker Relationship Specialty Start Date End Date Kiah Spence NP [address] [address] [place] [address] PCP - General Internal Medicine 01/08/23
--- OUTSIDE RECORDS SUMMARY | 2024-12-30 07:53 | XMS_ITS | Encounter Summary ---
Author Organization [facility] Address [address] [place] [address] Care Team Providers Care Executive Vice President Business Development Name Role Phone Berhane Easley MD Primary Care Provider [phone] Encounter Details Date Type Department Care Team (Latest Contact Info) Description 01/01/2005 Outpatient Historical [facility] Berhane Do MD [address] [place] [address] SCREENING MAMM-MAILG NEOPL NEC (Primary Dx) Social History Tobacco Use Types Packs/Day Years Used Date Smoking Tobacco: Never Assessed Comments Unknown Sex and Gender Information Value Date Recorded Sex Assigned at Not on file Legal Sex Female 5:10 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
--- OUTSIDE RECORDS SUMMARY | 2024-12-30 07:53 | XMS_ITS | Clinical Summary ---
Author Organization [facility] Address [address] [place] [address] Care Team Providers Care Die Filer Name Role Phone Berhane Easley MD Primary Care Provider [phone] Medications tirzepatide (Mounjaro) 7.5 mg/0.5 mL Pen Injector Inject 0.5 mL (7.5 mg) by subcutaneous injection every 7 days. 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
--- OUTSIDE RECORDS SUMMARY | 2024-12-30 07:53 | XMS_ITS | Data Portability ---
Author Organization [facility] [employer], Main Office Address [address] [place] [address] Assessment No assessment recorded. Plan of Treatment Reminders Order Date Submit Date Provider Last Modified By Organization Details Last Modified Time Details Appointments None recorded. Lab hemoglobin A1C, fingerstick [address], [place], [address], 3 09:24:08 lipid panel, serum 2022 023 [facility], [address] , [place], [address], 3 07:32:25 CMP, serum or plasma 2022 023 [facility], [address], [place], [address], 3 07:32:26 hemoglobin A1C, fingerstick [address] [place], [place], [address], 3 09:37:09 Referral None recorded. Procedures colonoscopy screening (PROC) 2022 023 [email or web address] 256 Manolo Alfaro MD, [address], [place], [address], 3 09:06:13 Surgeries None recorded. Imaging None recorded. Medication Orders Mounjaro 5 mg/0.5 mL subcutaneou s pen injector 2022 023 [email or web address] 3 [facility], [address] [place], [address], 09:13:36 Patient TargetsNo targets recorded. Patient InstructionsNo instructions recorded. Reason for Referral None Reported. Results Created Date Observation Date Name Description Value Unit Range Abnormal Flag Note LastModifiedBy Organization Detail LastModifiedTime 02/25/2002/24/2022 hemog lobin A1C, finge rstic k HgbA1C 7.1 Not Available [address], [place], [address], 02/24/2022 09:29:07 06/27/19 23 06/26/2022 hemog lobin A1C, finge rstic k HgbA1C 7.8 Not Available [address], [place], [address], 06/26/2022 09:16:39 07/02/1907/02/2022 LIPID PANEL (REFL ) cholesterol, total 153 mg/dL <200 normal Not Available [employer] [address] [address] [place], [address], 07/02/2022 07:32:25 07/02/1907/02/2022 LIPID PANEL (REFL ) HDL cholesterol 36 mg/dL > or = 50 low Not Available [employer] [address] [place], [address], 07/02/2022 07:32:25 07/02/1907/02/2022 LIPID PANEL (REFL ) triglyceride s 197 mg/dL <150 high Not Available [employer] [facility] [address] [place], [address], 07/02/2022 07:32:25 07/02/1907/02/2022 LIPID PANEL (REFL ) LDL-choleste rol 88 mg/dL _(david c) normal Refer ence range : <100 Cleo able range <100 mg/dL for prima ry preve ntion ; <70 mg/dL for patie nts with CHD or diabe tic patie nts with > or = 2 CHD risk facto rs. LDL-C is now calcu lated using the [facility] calcu romarioaleksandra n, which is a valid ated novel mimao d shanai sherrell francine r accur acy than the Fried jacqui equat ion in the estim ation of LDL-C . Nisha n SS et al. KEVIN. 2013; 310(1 9): 2061- 2068 (http ://ed ucati on.[employer]. Revolve./f aq/FA Q164) Not Available [facility] [address] [place], [address], 07/02/2022 07:32:25 07/02/1907/02/2022 LIPID PANEL (REFL ) chol/HDLC ratio 4.3 (calc ) <5.0 normal Not Available [facility] [address] [place], [address], 07/02/2022 07:32:25 07/02/1907/02/2022 LIPID PANEL (REFL ) non HDL cholesterol 117 mg/dL _(david c) <130 normal For patie nts with diabe victor hugo plus 1 major ASCVD risk facto r, treat ing to a non-H DL-C goal of <100 mg/dL (LDL- C of <70 mg/dL ) is consi dered a thera peuti c optio n. Not Available [facility] [address] [place], [address], 07/02/2022 07:32:25 07/02/1907/02/2022 COMPR EHENS RANDY METAB OLIC PANEL glucose 147 mg/dL 65-99 high Fasti ng refer ence inter gena For someo ne witho ut known diabe victor hugo, a gluco se value >125 mg/dL indic ates that they may have diabe victor hugo and this shoul d be confi rmed with a follo w-up test. Not Available [facility] [address] [address] [place], [address], 07/02/2022 07:32:26 07/02/19 23 07/02/2022 COMPR EHENS RANDY METAB OLIC PANEL urea nitrogen (BUN) 21 mg/dL 7-25 normal Not Available [facility] [address] [address] [place], [address], 07/02/2022 07:32:26 07/02/19 23 07/02/2022 COMPR EHENS RANDY METAB OLIC PANEL creatinine 0.59 mg/dL 0.50-1 .05 normal Not Available [facility] [address] [address] [place], [address], 07/02/2022 07:32:26 07/02/19 23 07/02/2022 COMPR EHENS RANDY METAB OLIC PANEL eGFR 102 mL/mi n/1.7 3m2 > or = 60 normal The eGFR is based on the CKD-E PI 2020 equat ion. To calcu late the new eGFR from a previ ous Creat inine or Cysta tin C resul t, go to https ://jeni freedman.christopher olivera/srinath glass s/ kdoqi /gfr% 5Fcal culat or Not Available [address] [address] [place], [address], 07/02/2022 07:32:26 07/02/19 23 07/02/2022 COMPR EHENS RANDY METAB OLIC PANEL BUN/creatini ne ratio NOT APPLIC ABLE (calc ) 6-22 Not Available [facility] [address] [address] [place], [address], 07/02/2022 07:32:26 07/02/19 23 07/02/2022 COMPR EHENS RANDY METAB OLIC PANEL sodium 137 mmol/ L 135-14 6 normal Not Available [facility] [address] [address] [place], [address], 07/02/2022 07:32:26 07/02/19 23 07/02/2022 COMPR EHENS RANDY METAB OLIC PANEL potassium 4.4 mmol/ L 3.5-5. 3 normal Not Available [address], [address], 07/02/2022 07:32:26 07/02/19 23 07/02/2022 COMPR EHENS RANDY METAB OLIC PANEL chloride 102 mmol/ L 98-110 normal Not Available [address], [address], 07/02/2022 07:32:26 07/02/19 23 07/02/2022 COMPR EHENS RANDY METAB OLIC PANEL carbon dioxide 24 mmol/ L 20-32 normal Not Available [address], [address], 07/02/2022 07:32:26 07/02/19 23 07/02/2022 COMPR EHENS RANDY METAB OLIC PANEL calcium 9.8 mg/dL 8.6-10 .4 normal Not Available [address], [address], 07/02/2022 07:32:26 07/02/19 23 07/02/2022 COMPR EHENS RANDY METAB OLIC PANEL protein, total 6.7 g/dL 6.1-8. 1 normal Not Available [address], [address], 07/02/2022 07:32:26 07/02/19 23 07/02/2022 COMPR EHENS RANDY METAB OLIC PANEL albumin 4.4 g/dL 3.6-5. 1 normal Not Available [address], [address], 07/02/2022 07:32:26 07/02/19 23 07/02/2022 COMPR EHENS RANDY METAB OLIC PANEL globulin 2.3 g/dL_ (calc ) 1.9-3. 7 normal Not Available [address], [address], 07/02/2022 07:32:26 07/02/19 23 07/02/2022 COMPR EHENS RANDY METAB OLIC PANEL albumin/glob ulin ratio 1.9 (calc ) 1.0-2. 5 normal Not Available [address] [place], [address], 07/02/2022 07:32:26 07/02/19 23 07/02/2022 COMPR EHENS RANDY METAB OLIC PANEL bilirubin, total 0.6 mg/dL 0.2-1. 2 normal Not Available [address], [address], 07/02/2022 07:32:26 07/02/19 23 07/02/2022 COMPR EHENS RANDY METAB OLIC PANEL alkaline phosphatase 55 U/L 37-153 normal Not Available [address], [address], 07/02/2022 07:32:26 07/02/19 23 07/02/2022 COMPR EHENS RANDY METAB OLIC PANEL AST 22 U/L 10-35 normal Not Available [address], [address], 07/02/2022 07:32:26 07/02/19 23 07/02/2022 COMPR EHENS RANDY METAB OLIC PANEL ALT 36 U/L 6-29 high Not Available [address], [address], 07/02/2022 07:32:26 09/27/19 23 09/26/2022 hemog lobin A1C, finge rstic k HgbA1C 6.5 Not Available [facility] [address], [place], [address], 09/26/2022 09:07:05 06/18/1906/11/2022 imagi ng/di gabby tic resul t No observ ation record ed. [address], [place], [address], 06/18/2022 09:37:23 Result Notes None recorded. Problems Name Problem SNOMED Code Status Onset Date Resolution Date Notes Provider Name and Address Organization Details Recorded Time Glucose level outside reference range 952725463 Active Not Available [facility] 3 09:19:06 On examinatio n - skin tags Active Not Available [facility] 3 09:19:06 Edema 782938400 Active Not Available [facility] 3 09:19:06 Heel pain 7212772 Active Not Available [facility] 3 09:19:06 Knee pain Active Not Available [facility] 3 09:19:06 Vitamin D deficiency 55935869 Active Not Available [facility] 3 09:19:06 Hypertensi ve disorder 34329843 Active Not Available [facility] 3 09:19:06 Hyperlipid emia 13428760 Active Not Available [facility] 3 09:19:06 Essential hypertensi on 43916733 Active Not Available [facility] 3 09:19:06 Type 2 diabetes mellitus without complicati on 700740351 Active 2022 Madonna Jha MD [address], [place], [address] , [place] [facility] [employer] 3 09:16:31 Pain of bilateral knee joints 2843172719714 04 Active 2022 Madonna Jha MD [address], [place], [address] , [facility] 3 09:17:48 Hyperchole sterolemia 94205779 Active 2022 Madonna Jha MD [address], [place], [address] , [facility] [email or web address] [facility] 3 09:24:44 Obesity 603834835 Active 2022 Madonna Jha MD [address], [facility] [address], [place], [address] , [facility] [email or web address] [facility] 3 09:07:18 Problem Notes None recorded. Medical Equipment None Reported. Medications Name Sig Start Date Stop Date Status Note LastModified by Organization Details LastModified Time atorvastati n 40 mg tablet 2 tabs daily 08/30 completed Not Available Not Available Not Available atorvastati n 80 mg tablet TAKE 1 TABLET DAILY active Not Available Not Available No t Available atorvastati n 20 mg tablet take 4 tablets every day by mouth 08/30 completed Not Available Not Available Not Available citalopram 40 mg tablet 1 po daily active Not Available Not Available No t Available azithromyci n 250 mg tablet active Not Available Not Available Not Available valacyclovi r 1 gram tablet 09/20 completed Not Available Not Available Not Available meloxicam 15 mg tablet TAKE 1 TABLET DAILY active Not Available Not Available No t Available glipizide ER 5 mg tablet, extended release 24 hr 04/14 completed Not Available Not Available Not Available lidocaine HCl 2 % mucosal jelly Take 200 mg by mucous route. 01/14 completed Not Available Not Available Not Available amlodipine 5 mg tablet Take 1 tablet every day by oral route. 05/26 completed Not Available Not Available Not Available hydrocodone 10 mg-acetamin ophen 325 mg tablet 1-2 tablets every 4-6 hours prn 01/14 completed Not Available Not Available Not Available tramadol 50 mg tablet 09/20 completed Not Available Not Available Not Available hydrocortis one acetate 25 mg rectal suppository Insert 1 supposito ry twice a day by rectal route for 14 days. 06/15 completed Not Available Not Available Not Available amlodipine 10 mg tablet TAKE 1 TABLET DAILY active Not Available Not Available No t Available neomycin-po lymyxin-dex ameth 3.5 mg/mL-10,00 0 unit/mL-0.1 % eye drops INSTILL 1 DROP QID IN OS FOR 7 DAYS 01/14 completed Not Available Not Available Not Available lisinopril 10 mg tablet 2 po daily 01/20 completed Not Available Not Available Not Available lisinopril 20 mg-hydrochl orothiazide 25 mg tablet TAKE 1 TABLET BY MOUTH ONCE DAILY active Not Available Not Available No t Available raloxifene 60 mg tablet TAKE 1 TABLET DAILY 02/02 completed Not Available Not Available Not Available ergocalcife rol (vitamin D2) 1,250 mcg (50,000 unit) capsule TAKE 1 CAPSULE BY MOUTH ONCE A WEEK active Not Available Not Available No t Available levofloxaci n 750 mg tablet Take 1 tablet every day by oral route. 01/14 completed Not Available Not Available Not Available metformin ER 500 mg tablet,exte nded release 24 hr Take 2 tablets by mouth twice a day active Not Available Not Available No t Available fenofibrate micronized 145 mg tablet 1 po daily 06/15 completed Not Available Not Available Not Available diazepam 5 mg-7.5 mg-10 mg rectal kit set both syringes to 5mg will administe r in office 01/14 completed Not Available Not Available Not Available fenofibrate nanocrystal lized 145 mg tablet TAKE 1 TABLET DAILY 2022 active Not Available Not Available Not Avai lable [place] Oil 1500mg once daily 07/08 completed Not Available Not Available Not Available cholecalcif salazar (vitamin D3) 1,250 mcg (50,000 unit) capsule TAKE 1 CAPSULE ONCE A WEEK active Not Available Not Available No t Available Vitamin D3 50 mcg (2,000 unit) capsule 2012 active Not Available Not Available Not Avai lable Trulicity 0.75 mg/0.5 mL subcutaneou s pen injector Inject 0.75 mg every week by subcutane ous route. 06/26 completed Not Available Not Available Not Available Fluvirin 45 mcg (15 mcg x 3)/0.5 mL intramuscul ar suspension active Not Available Not Available N ot Available Fluvirin (PF) 45 mcg (15 mcg x 3)/0.5 mL intramuscul ar syringe ADM 0.5ML IM UTD 06/04 completed Not Available Not Available Not Available Fluvirin 45 mcg (15 mcg x 3)/0.5 mL intramuscul ar suspension ADM 0.5ML IM UTD 01/14 completed Not Available Not Available Not Available Ozempic 0.25 mg or 0.5 mg (2 mg/1.5 mL) subcutaneou s pen injector Inject 0.5 mg every week by subcutane ous route. 04/14 completed Not Available Not Available Not Available Flucelvax Quad (PF) 60 mcg (15 mcg x 4)/0.5 mL IM syringe ADM 0.5ML IM UTD 02/24 completed Not Available Not Available Not Available [employer] COVID-19 Antigen Home Test kit 02/24 completed Not Available Not Available Not Available Mounjaro 7.5 mg/0.5 mL subcutaneou s pen injector INJECT 7.5MG SUBCUTANE OUSLY ONCE WEEKLY active Not Available Not Available No t Available Mounjaro 5 mg/0.5 mL subcutaneou s pen injector INJECT 5 MG SUB-Q EVERY WEEK. 09/26 completed Not Available Not Available Not Available Mounjaro 10 mg/0.5 mL subcutaneou s pen injector Inject 10 mg every week by subcutane ous route. 2022 active Not Available Not Available Not Avai lable Vitals Date Recorded Body mass index (BMI) Body height Oxygen saturation Oxygen saturation in Arterial blood by Pulse oximetry Heart rate Body temperature Body weight Systolic And Diastolic Provider Name and Address Organization Details Last Updated DateTime 3 38.4 kg/m2 162.56 cm 96 % 96 % 79 /min 97.6 [degF] 187838. 69 g 160/100 mm[Hg] Not Available [facility] 3 09:14:22 Date Recorded Body height Body mass index (BMI) Body weight Body temperature Heart rate Oxygen saturation Oxygen saturation in Arterial blood by Pulse oximetry Systolic And Diastolic Provider Name and Address Organization Details Last Updated DateTime 3 162.56 cm 38.8 kg/m2 754795. 88 g 97 [degF] 89 /min 97 % 97 % 170/80 mm[Hg] ILIANA Forrester [place] [facility] [place] [employer] [facility] 3 09:07:25 Date Recorded Body height Body mass index (BMI) Body weight Body temperature Heart rate Oxygen saturation Oxygen saturation in Arterial blood by Pulse oximetry Systolic And Diastolic Provider Name and Address Organization Details Last Updated DateTime 3 162.56 cm 34.7 kg/m2 17477.6 6 g 97.9 [degF] 93 /min 97 % 97 % 142/64 mm[Hg] ILIANA Forrester [place] [facility] 3 08:55:55 Date Recorded Body mass index (BMI) Body height Oxygen saturation Oxygen saturation in Arterial blood by Pulse oximetry Heart rate Body temperature Body weight Systolic And Diastolic Provider Name and Address Organization Details Last Updated DateTime 2 40 kg/m2 162.56 cm 97 % 97 % 77 /min 96.8 [degF] 743003. 02 g 170/80 mm[Hg] Not Available [facility] 3 09:14:22 Date Recorded Body mass index (BMI) Body height Oxygen saturation Oxygen saturation in Arterial blood by Pulse oximetry Heart rate Body temperature Body weight Systolic And Diastolic Provider Name and Address Organization Details Last Updated DateTime 2 39.5 kg/m2 162.56 cm 97 % 97 % 77 /min 97.8 [degF] 274561. 25 g 180/70 mm[Hg] Not Available [facility] 3 09:14:22 Social History None recorded. Functional Status None recorded. Mental Status None recorded. Family History Nothing Reported. Medical History No medical history recorded. Gynecological HistoryNo gynecological history recorded. Obstetrics History GPAL:G 0 P 0 0 0 0 Immunizations Vaccine Type Date Status Note Provider Nam e and Address Organization Details Recorded Time zoster recombinant 0 completed Not Available [facility] 06/04/2022 09:25:24 Influenza, split virus, quadrivalent, PF 9 completed Not Available [facility] 06/04/2022 09:25:24 zoster recombinant 9 completed Not Available [facility] 06/04/2022 09:25:24 Influenza, split virus, quadrivalent, PF 8 completed Not Available [facility] 06/04/2022 09:25:24 Past Encounters Encounter ID Performer Location Encounter Start Date Encounter Closed Date Diagnosis/Indication Diagnosis SNOMED-CT Code Diagnosis ICD10 Code Diagnosis IMO Codes Diagnosis Note [id number] Madonna Jha MD [facility] [address] [place] [address] 02/24/2022 00:00:00 02/24/2022 14:05:30 [id number] Madonna Jha MD [facility] [address] [place] [address] 03/10/2022 00:00:00 03/10/2022 20:11:21 [id number] Madonna Jha MD [facility] [place] [address] [place] [address] [place] [address] 04/14/2022 00:00:00 04/15/2022 06:31:50 [id number] Madonna Jha MD [facility] [address] [place] [address] [place] [address] [place] [address] 06/26/2022 08:56:46 06/26/2022 09:41:02 Type 2 diabetes mellitus without complication 474926389 E11.9 A1C is 7.8% Insurance will not cover trulicity Will start mounjaro. F/u in 3 months Pain of bi lateral knee joints 2766297146 73819 M25.561 F/u with ortho Hypercholesterolemia 136 21428 E78.5 Essential hypertension 83376857 I10 BP recheck 140/80. Watch BP away from here. Report if BP is running high. [id number] Madonna Jha MD [facility] [place] [place] [address] [place] [address] 09/26/2022 08:44:02 09/26/2022 09:15:05 Type 2 diabetes mellitus without complication 605899084 E11.9 A1C is 6.5% Will go up on mounjaro to 10 mg. F/u in 3 months. Obesity 946326378 E66.9 Continue weight loss efforts. Screening for malignant neoplasm of colon 650046879 Z12.11 Family his tory of cancer of colon 490427247 Z80.0 Health Concerns Section Related Observation LastModified by Organization Detai ls LastModified Time None Recorded Concern Status LastModified by Organization Details LastModified Time None Recorded Advance Directives Directive None Recorded Payers Insurance Date Sequence Insurance Name Policy Number Policy Carrion Covered Member ID Crarion Member ID Guarantor Name 09/30/2022 1 [place] [id number] Sintia Esteban [id number] Sintia Esteban Notes Date Note Type Note Provider Name and Address Organization Details Recorded Time 06/26/2022 text/html Here today for A1C check. Feeling ok. Went to get knees evaluated. Cortisone was wanted to be given. Suggested PT and injections. Her knees ache every day but can handle the pain. Takes meloxicam which helps> No tingling or numbness of feet.BP is up today. Is on lisinopril and amilodipine. Madonna Jha MD [address], [facility] [address], [place], [address], [employer] 06/26/2022 19:33:44 09/26/2022 text/html Here today for A1C check and has lost weight too on mounjaro. Has no complaints. Doing well. Is due for colonoscopy has fmhx of colon cancer. Has a hx of ruptured hemorrhoid. Had colonoscopy at 52. Is due for colonoscopy. Needs refills of mounjaro soon. Madonna Jha MD [address], [facility] [address], [place], [address], [employer] 09/26/2022 09:16:45 OBGyn Episode No OBEpisode recorded.
--- OUTSIDE RECORDS SUMMARY | 2024-12-30 07:53 | XMS_ITS | Clinical Summary ---
Author Organization [facility] Address [address] [place] [address] Care Team Providers Care Cider Maker Name Role Phone Jessica Lomax MD Primary Care Provider [phone] Source Comments [facility],non-owned Affiliates and Associated Physician Practices is amultiple site organization consisting of ambulatory clinics and hospital sitesin [place] and [place]. This disclosure is being madepursuant to the Care Everywhere program and may not contain all information available regarding this patient. Last updated 17.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
--- OUTSIDE RECORDS SUMMARY | 2024-12-30 07:53 | XMS_ITS | Encounter Summary ---
Author Organization [facility] Address [address] [place] [address] Care Team Providers Care Numerical Tool Programmer Name Role Phone Berhane Easley MD Primary Care Provider [phone] Encounter Details Date Type Department Care Team (Latest Contact Info) Description 12/06/2003 Outpatient Historical HIS 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
--- OUTSIDE RECORDS SUMMARY | 2024-12-30 07:53 | XMS_ITS | Encounter Summary ---
Author Organization [facility] Address [address] [place] [address] Care Team Providers Care Cyber Incident Handler Name Role Phone Berhane Easley MD Primary Care Provider [phone] Encounter Details Date Type Department Care Team (Late st Contact Info) Description 01/01/2006 Outpatient Historical HIS [facility] Alexis Cordoba MD [address] [place] [address] Other Screening Mammogram (Primary Dx) Social History Tobacco Use Types Packs/Day Years Used Date Smoking Tobacco: Never Assessed Comments Unknown Sex and Gender Information Value Date Recorded Sex Assigned at Not on file Legal Sex Female 5:10 AM SVP PROGRAMMATIC TV Gender Identity Not on file Sexual Orientation Not on file documented as of this encounter Plan of Treatment Not on file documented as of this encounter Visit Diagnoses Diagnosis Other screening mammogram- Primary documented in this encounter Care Teams Cyber Incident Handler Relationship Specialty Start Date End Date Berhane Easley MD [address] [facility] [address] [place] [address] PCP - General 01/01/06 documented as of this encounter
== END 2024-12-30 07:48 | disposition home or self-care (01) ==
LOC: ANHFOHIMG 07:50
PROVIDERS: PCP Nurse Practitioner Family; Visit Provider Nurse Practitioner
DX: Z12.31 Encounter for screening mammogram for malignant neoplasm of breast (principal)
CPT/HCPCS: 77063; 77067